=== PATIENT | female | born 1990 | race Caucasian/White ===

== ENCOUNTER 2016-11-07 23:32 | Emergency (ER) | payer MEDICAID ==
[2016-11-07 23:38] VITALS: BP 122/82
[2016-11-07] MEDS ORDERED: Diphtheria,Pertussis(Acell),Tetanus Vaccine 0.5 ML SDV IM ONE (23:59)
[2016-11-08] MEDS ORDERED: Amoxicillin/Clavulanate K 875-125 MG Tab PO ONE
[2016-11-08] MEDS ORDERED: Bacitracin Oint 1 GM U/D Packet TOP ONE
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
== END 2016-11-08 00:27 | disposition home or self-care (01) ==
LOC: DL.ED 23:32
DX: S01.81XA Laceration without foreign body of other part of head, initial encounter (principal); S60.412A Abrasion of right middle finger, initial encounter; F17.210 Nicotine dependence, cigarettes, uncomplicated; Y04.0XXA Assault by unarmed brawl or fight, initial encounter; Z91.030 Bee allergy status; Z91.040 Latex allergy status; Z79.899 Other long term (current) drug therapy
CPT/HCPCS: 12011; 90471; 90715; 99284; A9270

== ENCOUNTER 2016-11-08 17:41 | Emergency (ER) | payer MEDICAID ==
[2016-11-08 17:56] VITALS: BP 117/67
[2016-11-08] MEDS ORDERED: metroNIDAZOLE 250 MG Tab PO ONE (18:44)
[2016-11-08] MEDS ORDERED: cefTRIAXone 250 MG, Lidocaine 1% 0.9 ML IM ONE ×2 (18:45)
[2016-11-08] MEDS ORDERED: Ondansetron 4 MG Tab.DIS PO ONE (18:45)
[2016-11-08] MEDS ORDERED: Azithromycin 250 MG Tab PO ONE (18:45)
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
== END 2016-11-08 19:44 | disposition home or self-care (01) ==
LOC: DL.ED 17:41
DX: N76.0 Acute vaginitis (principal); B37.9 Candidiasis, unspecified; S06.0X0D Concussion without loss of consciousness, subsequent encounter; S60.414D Abrasion of right ring finger, subsequent encounter; S16.1XXD Strain of muscle, fascia and tendon at neck level, subsequent encounter; J45.909 Unspecified asthma, uncomplicated; K21.9 Gastro-esophageal reflux disease without esophagitis; F41.9 Anxiety disorder, unspecified; F17.210 Nicotine dependence, cigarettes, uncomplicated; D64.9 Anemia, unspecified; Z98.890 Other specified postprocedural states; Z91.040 Latex allergy status; Z91.030 Bee allergy status; Z91.018 Allergy to other foods; Y04.8XXD Assault by other bodily force, subsequent encounter
CPT/HCPCS: 36415; 70450; 72125; 80305; 81001; 81025; 85025; 87491; 87591; 96372; 99284; A9270; G0480; J0696

== ENCOUNTER 2017-03-27 20:59 | Emergency (ER) | payer MEDICAID ==
[2017-03-28 01:02] VITALS: BP 95/47
[2017-03-28] MEDS ORDERED: Ketorolac 30 MG/ML SDV IM ONE (01:28)
[2017-03-28] MEDS ORDERED: diphenhydrAMINE 25 MG Tab PO ONE (01:28)
[2017-03-28] MEDS ORDERED: Ondansetron 4 MG Tab.DIS PO ONE (01:28)
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
== END 2017-03-28 02:28 ==
LOC: DL.ED 20:59
DX: R51 Headache (principal); J45.909 Unspecified asthma, uncomplicated; K21.9 Gastro-esophageal reflux disease without esophagitis; F41.9 Anxiety disorder, unspecified; Z86.2 Personal history of diseases of the blood and blood-forming organs and certain disorders involving the immune mechanism; F17.210 Nicotine dependence, cigarettes, uncomplicated; Z91.040 Latex allergy status; Z91.030 Bee allergy status; Z91.018 Allergy to other foods
CPT/HCPCS: 96372; 99283; A9270; J1885

== ENCOUNTER 2017-05-21 14:47 | Emergency (ER) | payer MEDICAID ==
[2017-05-21] MEDS ORDERED: Sodium Chloride 0.9% 1,000 ML IV ONE (15:12)
--- NOTE | 2017-05-21 15:14 | EDM.PDOC ---
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 Pt. smoke 1/2 ppd and could be . PMHx. STDs Onset Date: 05/19/17 Onset Time: 12:00 Duration: Day(s): Location: Reports: Pelvis Severity: Moderate Improves with: Reports: None Worsens with: Reports: None Associated Symptoms: Reports: No Other Symptoms Pelvic Pain Score (Numeric/FACES): 2 - Related Data Allergies Allergy/AdvReac Type Severity Reaction Status Date / Time aloe vera Allergy Hives Verified 05/21/17 15:08 latex Allergy Hives Verified 05/21/17 15:08 strawberry [[place]] Allergy Swelling Verified 05/21/17 15:08 venom-honey bee Allergy Swelling Verified 05/21/17 15:08 [bee venom (honey bee)] Past Medical History - Past Health History Medical/Surgical History: Denies Medical/Surgical History HEENT History: Reports: None Cardiovascular History: Reports: None Respiratory History: Reports: Asthma Other Respiratory History: Haven't used inhaler in "a long time" Gastrointestinal History: Reports: GERD Genitourinary History: Reports: UTI, Recurrent Other Genitourinary History: Frequent UTIs, on Macribid until end of 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 and 5th metatarcel on left foot. Neurological History: Reports: None Psychiatric History: Reports: Anxiety Endocrine/Metabolic History: Reports: None Hematologic History: Reports: Anemia, B12 Deficiency Immunologic History: Reports: None Oncologic (Cancer) History: Reports: None Dermatologic History: Reports: None - Infectious Disease History Infectious Disease History: Reports: Chicken Pox, Herpes, Human Papilloma Virus (HPV) Other Infectious Disease History: GC, chlamydia - Past Surgical History Head Surgeries/Procedures: Reports: None Female Surgical History: Reports: Section, Other (See Below) Social & Family History - Family History Family Medical History: Noncontributory - Tobacco Use Smoking Status *Q: Current Every Day Smoker Years of Tobacco use: 5 Packs/Tins Daily: 0.4 Used Tobacco, but Quit: No Month Tobacco Last Used: 01 Second Hand Smoke Exposure: Yes - Caffeine Use Caffeine Use: Reports: None - Alcohol Use Days Per Week of Alcohol Use: 6 Number of Drinks Per Day: 2 Total Drinks Per Week: 12 - Recreational Drug Use Recreational Drug Use: No Drug Use in Last 12 Months: No Recreational Drug Type: Reports: Ecstasy Recreational Drug Use Frequency: Not Used In Over 1 Month - Sexual History Sexual History: Reports: Sexually Active - Living Situation & Occupation Living situation: Reports: with Significant Other Occupation: Employed ED ROS GENERAL - Review of Systems Review Of Systems: See Below Constitutional: Reports: No Symptoms HEENT: Reports: No Symptoms Respiratory: Reports: No Symptoms Cardiovascular: Reports: No Symptoms Endocrine: Reports: No Symptoms GI/Abdominal: Reports: No Symptoms : Reports: Discharge (brownish w/ odor) Musculoskeletal: Reports: No Symptoms Skin: Reports: No Symptoms Neurological: Reports: No Symptoms Psychiatric: Reports: No Symptoms Hematologic/Lymphatic: Reports: No Symptoms Immunologic: Reports: No Symptoms ED EXAM - Physical Exam Exam: See Below Exam Limited By: No Limitations General Appearance: Alert, No Apparent Distress, Thin Eye Exam: Bilateral Eye: EOMI, PERRL Ears: Normal External Exam Nose: Normal Inspection Throat/Mouth: Normal Inspection Head: Atraumatic Respiratory/Chest: No Respiratory Distress, Lungs Clear Cardiovascular: Normal Peripheral Pulses, Regular Rate, Rhythm GI/Abdominal Exam: Normal Bowel Sounds, Soft, Non-Tender Back Exam: Normal Inspection Extremities: Normal Inspection Neurological: Alert, Oriented Psychiatric: Normal Affect Skin Exam: Warm Lymphatic: No Adenopathy Course - Vital Signs Last Recorded V/S: Last Vital Signs Temp 37.2 C 05/21/17 15:22 Pulse 64 05/21/17 15:22 Resp 18 05/21/17 15:22 BP 118/80 05/21/17 15:22 Pulse Ox 99 05/21/17 15:22 - Orders/Labs/Meds Orders: Active Orders 24 hr Category Date Time Status CULTURE GENITAL [RM] Stat Lab 05/21/17 15:30 Received Labs: Laboratory Tests 05/21/17 05/21/17 05/21/17 Range/Units 15:16 15:16 15:31 WBC 5.2 (5.0-10.0) 10^3/uL RBC 4.43 (4.2-5.4) 10^6/uL Hgb 13.3 (12.0-16.0) g/dL Hct 37.9 (37.0-47.0) % MCV 85.6 D (80-100) fL MCH 30.0 (27.0-34.0) pg MCHC 35.1 H (33.0-35.0) g/dL Plt Count 144 L (150-450) 10^3/uL Neut % (Auto) 57.3 (42.2-75.2) % Lymph % (Auto) 30.6 (20.5-50.1) % [place] % (Auto) 8.8 H (2-8) % Eos % (Auto) 2.9 (1.0-3.0) % Baso % (Auto) 0.4 (0.0-1.0) % Sodium (135-145) mmol/L Potassium (3.6-5.0) mmol/L Chloride (101-111) mmol/L Carbon Dioxide (21.0-31.0) mmol/L Anion Gap BUN (7-18) mg/dL Creatinine (0.6-1.3) mg/dL Est Cr Clr Drug Dosing mL/min Estimated GFR (MDRD) BUN/Creatinine Ratio Glucose (74-105) mg/dL Calcium (8.4-10.2) mg/dl Total Bilirubin (0.2-1.0) mg/dL AST (10-42) IU/L ALT (10-60) IU/L Alkaline Phosphatase (42-121) IU/L Total Protein (6.7-8.2) g/dl Albumin (3.2-5.5) g/dl Globulin Albumin/Globulin Ratio Urine HCG, Qual Negative Urine Opiates Screen Negative (NEGATIVE) Ur Oxycodone Screen Negative (NEGATIVE) Urine Methadone Screen Negative (NEGATIVE) Ur Barbiturates Screen Negative (NEGATIVE) U Tricyclic Antidepress Negative (NEGATIVE) Ur Phencyclidine Scrn Negative (NEGATIVE) Ur Amphetamine Screen Negative (NEGATIVE) U Methamphetamines Scrn Negative (NEGATIVE) Urine MDMA Screen Negative (NEGATIVE) U Benzodiazepines Scrn Negative (NEGATIVE) Urine Cocaine Screen Negative (NEGATIVE) U Marijuana (THC) Screen Negative (NEGATIVE) 05/21/17 Range/Units 15:31 WBC (5.0-10.0) 10^3/uL RBC (4.2-5.4) 10^6/uL Hgb (12.0-16.0) g/dL Hct (37.0-47.0) % MCV (80-100) fL MCH (27.0-34.0) pg MCHC (33.0-35.0) g/dL Plt Count (150-450) 10^3/uL Neut % (Auto) (42.2-75.2) % Lymph % (Auto) (20.5-50.1) % [place] % (Auto) (2-8) % Eos % (Auto) (1.0-3.0) % Baso % (Auto) (0.0-1.0) % Sodium 141 (135-145) mmol/L Potassium 4.0 (3.6-5.0) mmol/L Chloride 105 (101-111) mmol/L Carbon Dioxide 27.0 (21.0-31.0) mmol/L Anion Gap 13.0 BUN 9 (7-18) mg/dL Creatinine 0.6 (0.6-1.3) mg/dL Est Cr Clr Drug Dosing 116.95 mL/min Estimated GFR (MDRD) > 60 BUN/Creatinine Ratio 15.00 Glucose 80 (74-105) mg/dL Calcium 9.0 (8.4-10.2) mg/dl Total Bilirubin 0.4 (0.2-1.0) mg/dL AST 19 (10-42) IU/L ALT 18 (10-60) IU/L Alkaline Phosphatase 52 (42-121) IU/L Total Protein 6.7 (6.7-8.2) g/dl Albumin 4.1 (3.2-5.5) g/dl Globulin 2.6 Albumin/Globulin Ratio 1.58 Urine HCG, Qual Urine Opiates Screen (NEGATIVE) Ur Oxycodone Screen (NEGATIVE) Urine Methadone Screen (NEGATIVE) Ur Barbiturates Screen (NEGATIVE) U Tricyclic Antidepress (NEGATIVE) Ur Phencyclidine Scrn (NEGATIVE) Ur Amphetamine Screen (NEGATIVE) U Methamphetamines Scrn (NEGATIVE) Urine MDMA Screen (NEGATIVE) U Benzodiazepines Scrn (NEGATIVE) Urine Cocaine Screen (NEGATIVE) U Marijuana (THC) Screen (NEGATIVE) Meds: Medications Discontinued Medications Generic Name Dose Route Start Last Admin Trade Name Goran PRN Reason Stop Dose Admin Sodium Chloride 1,000 mls @ 999 mls/hr 05/21/17 15:12 05/21/17 15:58 Normal Saline IV 05/21/17 16:12 999 mls/hr .BOLUS ONE Administration Departure - Departure Time of Disposition: 16:28 Disposition: Home, Self-Care 01 Condition: Good Clinical Impression: Bacterial vaginosis - Discharge Information Forms: ED Department Discharge Additional Instructions: Take Medication as directed and complete: FLAGYL 500mg BID # 14 No Sex until re-checked by your PCP in one week - My Orders Last 24 Hours: My Active Orders 05/21/17 15:30 CULTURE GENITAL [RM] Stat - Assessment/Plan Last 24 Hours: My Active Orders 05/21/17 15:30 CULTURE GENITAL [RM] Stat
[2017-05-21 15:23] VITALS: BP 118/80
[2017-05-21 15:59] LABS: CHLORIDE,CL 105 mmol/L (101-111); SODIUM,NA 141 mmol/L (135-145)
== END 2017-05-21 16:39 | disposition home or self-care (01) ==
LOC: DL.ED 14:47
DX: N76.0 Acute vaginitis (principal); B96.89 Other specified bacterial agents as the cause of diseases classified elsewhere; F17.210 Nicotine dependence, cigarettes, uncomplicated; Z86.2 Personal history of diseases of the blood and blood-forming organs and certain disorders involving the immune mechanism; Z91.040 Latex allergy status; Z91.018 Allergy to other foods; Z91.030 Bee allergy status; Z91.048 Other nonmedicinal substance allergy status
CPT/HCPCS: 36415; 80053; 80305; 81025; 85025; 87070; 87210; 96360; 99283; J7030

== ENCOUNTER 2017-08-09 12:02 | Emergency (ER) | payer MEDICAID ==
--- NOTE | 2017-08-09 12:30 | EDM.PDOC ---
ED HPI GENERAL MEDICAL PROBLEM - General Chief Complaint: Fever Stated Complaint: ? FLU Time Seen by Provider: 08/09/17 12:30 Source of Information: Reports: Patient, RN, RN Notes Reviewed History Limitations: Reports: No Limitations - History of Present Illness INITIAL COMMENTS - FREE TEXT/NARRATIVE: C/O 3 days duration of fever, gen. body aches, clear runny nose, and dry cough. Pt's children have same Sx's and tested positive for influenza. Denies breathing difficulties. 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 Generalized Pain Score (Numeric/FACES): 6 - Related Data Allergies Allergy/AdvReac Type Severity Reaction Status Date / Time aloe vera Allergy Hives Verified 05/21/17 15:08 latex Allergy Hives Verified 05/21/17 15:08 strawberry [[place]] Allergy Swelling Verified 05/21/17 15:08 venom-honey bee Allergy Swelling Verified 05/21/17 15:08 [bee venom (honey bee)] Home Meds: Home Meds Acetaminophen [Tylenol] 650 mg PO ASDIRECTED 08/09/17 [History] Past Medical History - Past Health History Medical/Surgical History: Denies Medical/Surgical History HEENT History: Reports: None Cardiovascular History: Reports: None Respiratory History: Reports: Asthma Other Respiratory History: Haven't used inhaler in "a long time" Gastrointestinal History: Reports: GERD Genitourinary History: Reports: UTI, Recurrent Other Genitourinary History: Frequent UTIs, on Macribid until end of 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 and 5th metatarcel on left foot. Neurological History: Reports: None Psychiatric History: Reports: Anxiety Endocrine/Metabolic History: Reports: None Hematologic History: Reports: Anemia, B12 Deficiency Immunologic History: Reports: None Oncologic (Cancer) History: Reports: None Dermatologic History: Reports: None - Infectious Disease History Infectious Disease History: Reports: Chicken Pox, Herpes, Human Papilloma Virus (HPV) Other Infectious Disease History: GC, chlamydia - Past Surgical History Head Surgeries/Procedures: Reports: None Female Surgical History: Reports: Section, Other (See Below) Social & Family History - Family History Family Medical History: Noncontributory - Tobacco Use Smoking Status *Q: Current Every Day Smoker Years of Tobacco use: 5 Packs/Tins Daily: 0.4 Used Tobacco, but Quit: No Month Tobacco Last Used: 01 Second Hand Smoke Exposure: Yes - Caffeine Use Caffeine Use: Reports: None - Alcohol Use Days Per Week of Alcohol Use: 6 Number of Drinks Per Day: 2 Total Drinks Per Week: 12 - Recreational Drug Use Recreational Drug Use: No Drug Use in Last 12 Months: No Recreational Drug Type: Reports: Ecstasy Recreational Drug Use Frequency: Not Used In Over 1 Month - Sexual History Sexual History: Reports: Sexually Active - Living Situation & Occupation Living situation: Reports: with Significant Other Occupation: Employed ED ROS GENERAL - Review of Systems Review Of Systems: ROS reveals no pertinent complaints other than HPI. ED EXAM, GENERAL - Physical Exam Exam: See Below Exam Limited By: No Limitations General Appearance: Alert, WD/WN, No Apparent Distress, Other (acutely ill but non-toxic appearing) Eye Exam: Bilateral Eye: Normal Inspection Ears: Normal External Exam, Normal Canal, Hearing Grossly Normal, Normal TMs Nose: No Blood, Nasal Drainage (clear) Throat/Mouth: Normal Inspection, Normal Lips, Normal Gums, Normal Oropharynx, Normal Voice, No Airway Compromise Head: Atraumatic, Normocephalic Neck: Normal Inspection, Supple, Non-Tender, Full Range of Motion Respiratory/Chest: No Respiratory Distress, Lungs Clear, Normal Breath Sounds, No Accessory Muscle Use, Chest Non-Tender, Other (dry cough) Cardiovascular: Normal Peripheral Pulses, Regular Rate, Rhythm, No Edema, No Gallop, No JVD, No Murmur, No Rub GI/Abdominal: Normal Bowel Sounds, Soft, Non-Tender, No Distention Back Exam: Normal Inspection Extremities: Normal Inspection Neurological: Alert, Oriented, CN II-XII Intact, Normal Cognition, Normal Gait, No Motor/Sensory Deficits Psychiatric: Normal Affect, Normal Mood Skin Exam: Warm, Dry, Intact, Normal Color, No Rash Course - Vital Signs Last Recorded V/S: Last Vital Signs Temp 37.7 C 08/09/17 13:10 Pulse 97 08/09/17 13:10 Resp 14 08/09/17 13:10 BP 118/72 08/09/17 13:10 Pulse Ox 100 08/09/17 13:10 - Orders/Labs/Meds Orders: Active Orders 24 hr Category Date Time Status CULTURE STREP A CONFIRMATION [RM] Stat Lab 08/09/17 12:25 Results STREP SCRN A RAPID W CULT CONF [RM] Stat Lab 08/09/17 12:25 Results Labs: Influenza A: Positive Influenza B, Rapid strep: negative Departure - Departure Time of Disposition: 13:38 Disposition: Home, Self-Care 01 Condition: Good Clinical Impression: Influenza - Discharge Information Instructions: Fever, Adult, [id number], Influenza, Adult, [id number] Forms: ED Department Discharge Additional Instructions: Use Acetaminophen (Tylenol) or Ibuprofen (Motrin/Advil) as needed for fevers. Follow directions on bottle for dosing and precautions. Supplement fluid intake with water, juice, or gatorade until fevers resolve to prevent dehydration. Follow up in clinic if not improving in 7 to 10 days. Return to ER if any breathing difficulties develop. - My Orders Last 24 Hours: My Active Orders 08/09/17 12:25 CULTURE STREP A CONFIRMATION [RM] Stat STREP SCRN A RAPID W CULT CONF [RM] Stat - Assessment/Plan Last 24 Hours: My Active Orders 08/09/17 12:25 CULTURE STREP A CONFIRMATION [RM] Stat STREP SCRN A RAPID W CULT CONF [RM] Stat
[2017-08-09 13:12] VITALS: BP 118/72
== END 2017-08-09 13:52 | disposition home or self-care (01) ==
LOC: DL.ED 12:02
DX: J10.1 Influenza due to other identified influenza virus with other respiratory manifestations (principal); F17.210 Nicotine dependence, cigarettes, uncomplicated; Z91.040 Latex allergy status; Z91.030 Bee allergy status; Z91.018 Allergy to other foods; Z91.09 Other allergy status, other than to drugs and biological substances
CPT/HCPCS: 87081; 87430; 87804; 99283

== ENCOUNTER 2017-09-17 11:08 | Emergency (ER) | payer MEDICAID ==
[2017-09-17 11:28] VITALS: BP 116/78
--- NOTE | 2017-09-17 11:55 | EDM.PDOC ---
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 She reports that she was able to get the tampon out today. Relates that she has been having fevers and chills off and on. Lower abd pain for the last two weeks. Describes as cramping pain.Relates nausea no emesis. Patient reports large amount of vaginal discharge after removal. States the discharge is white. Reports that she has had some vaginal itching. Denies dysuria or flank pain Onset: Other (Abd pain for last 2 weeks) Location: Reports: Abdomen Quality: Reports: Other (Cramping ) Severity: Moderate Improves with: Reports: Medication Worsens with: Reports: Movement Associated Symptoms: Reports: Fever/Chills, Nausea/Vomiting Back Pain Score (Numeric/FACES): 7 - Related Data Allergies Allergy/AdvReac Type Severity Reaction Status Date / Time aloe vera Allergy Hives Verified 05/21/17 15:08 latex Allergy Hives Verified 05/21/17 15:08 strawberry [[place]] Allergy Swelling Verified 05/21/17 15:08 venom-honey bee Allergy Swelling Verified 05/21/17 15:08 [bee venom (honey bee)] Home Meds: Home Meds Acetaminophen [Tylenol] 650 mg PO ASDIRECTED 08/09/17 [History] Past Medical History - Past Health History Medical/Surgical History: Denies Medical/Surgical History HEENT History: Reports: None Cardiovascular History: Reports: None Respiratory History: Reports: Asthma Other Respiratory History: Haven't used inhaler in "a long time" Gastrointestinal History: Reports: GERD Genitourinary History: Reports: UTI, Recurrent Other Genitourinary History: Frequent UTIs, on Macribid until end of 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 and 5th metatarcel on left foot. Neurological History: Reports: None Psychiatric History: Reports: Anxiety Endocrine/Metabolic History: Reports: None Hematologic History: Reports: Anemia, B12 Deficiency Immunologic History: Reports: None Oncologic (Cancer) History: Reports: None Dermatologic History: Reports: None - Infectious Disease History Infectious Disease History: Reports: Chicken Pox, Herpes, Human Papilloma Virus (HPV) Other Infectious Disease History: GC, chlamydia - Past Surgical History Head Surgeries/Procedures: Reports: None Female Surgical History: Reports: Section, Other (See Below) Social & Family History - Family History Family Medical History: Noncontributory - Tobacco Use Smoking Status *Q: Current Every Day Smoker Years of Tobacco use: 4 Packs/Tins Daily: 0.5 Used Tobacco, but Quit: No Month/Year Tobacco Last Used: Second Hand Smoke Exposure: Yes - Caffeine Use Caffeine Use: Reports: Energy Drinks, Soda - Alcohol Use Days Per Week of Alcohol Use: 2 Number of Drinks Per Day: 10 Total Drinks Per Week: 20 - Recreational Drug Use Recreational Drug Use: No Drug Use in Last 12 Months: No Recreational Drug Type: Reports: Ecstasy Recreational Drug Use Frequency: Not Used In Over 1 Month - Sexual History Sexual History: Reports: Sexually Active - Living Situation & Occupation Living situation: Reports: with Significant Other Occupation: Employed ED ROS GENERAL - Review of Systems Review Of Systems: ROS reveals no pertinent complaints other than HPI. ED EXAM, GI/ABD - Physical Exam Exam: See Below Exam Limited By: No Limitations General Appearance: Alert, WD/WN, No Apparent Distress Eyes: Bilateral: Normal Appearance, EOMI Ears: Normal External Exam, Normal Canal, Hearing Grossly Normal, Normal TMs Nose: Normal Inspection, Normal Mucosa, No Blood Throat/Mouth: Normal Inspection, Normal Lips, Normal Teeth, Normal Gums, Normal Oropharynx, Normal Voice, No Airway Compromise Head: Atraumatic, Normocephalic Neck: Normal Inspection, Supple, Non-Tender, Full Range of Motion Respiratory/Chest: No Respiratory Distress, Lungs Clear, Normal Breath Sounds, No Accessory Muscle Use, Chest Non-Tender Cardiovascular: Normal Peripheral Pulses, Regular Rate, Rhythm, No Edema, No Gallop, No JVD, No Murmur, No Rub GI/Abdominal Exam: Normal Bowel Sounds, Soft, No Organomegaly, No Distention, No Abnormal Bruit, No Mass, Tender (Patient reports pain to lower abd. Reports more so to the left lower abd) Rectal (Female) Exam: Normal Exam, Normal Rectal Tone Back Exam: Normal Inspection, Full Range of Motion, NT Extremities: Normal Inspection, Normal Range of Motion, Non-Tender, Normal Capillary Refill, No Pedal Edema Neurological: Alert, Oriented, CN II-XII Intact, Normal Cognition, Normal Gait, Normal Reflexes, No Motor/Sensory Deficits Psychiatric: Normal Affect, Normal Mood Skin Exam: Warm, Dry, Intact, Normal Color, No Rash Lymphatic: No Adenopathy Course - Vital Signs Last Recorded V/S: Last Vital Signs Temp 37.1 C 09/17/17 11:27 Pulse 62 09/17/17 11:27 Resp 16 09/17/17 11:27 BP 116/78 09/17/17 11:27 Pulse Ox 100 09/17/17 11:27 - Orders/Labs/Meds Orders: Active Orders 24 hr Category Date Time Status CHLAMYDIA AND GONORRHEA BY TMA Stat Lab 09/17/17 12:14 Received CULTURE URINE [RM] Stat Lab 09/17/17 13:14 Ordered Labs: Laboratory Tests 09/17/17 09/17/17 09/17/17 Range/Units 11:54 11:54 12:14 WBC 5.9 (5.0-10.0) 10^3/uL RBC 4.83 (4.2-5.4) 10^6/uL Hgb 14.3 (12.0-16.0) g/dL Hct 40.7 (37.0-47.0) % MCV 84.3 (80-100) fL MCH 29.6 (27.0-34.0) pg MCHC 35.1 H (33.0-35.0) g/dL Plt Count 161 (150-450) 10^3/uL Neut % (Auto) 65.8 (42.2-75.2) % Lymph % (Auto) 26.1 (20.5-50.1) % [place] % (Auto) 7.1 (2-8) % Eos % (Auto) 0.7 L (1.0-3.0) % Baso % (Auto) 0.3 (0.0-1.0) % Sodium 134 L (135-145) mmol/L Potassium 3.9 (3.6-5.0) mmol/L Chloride 101 (101-111) mmol/L Carbon Dioxide 27.0 (21.0-31.0) mmol/L Anion Gap 9.9 BUN 10 (7-18) mg/dL Creatinine 0.6 (0.6-1.3) mg/dL Est Cr Clr Drug Dosing 111.95 mL/min Estimated GFR (MDRD) > 60 BUN/Creatinine Ratio 16.66 Glucose 88 (74-105) mg/dL Calcium 8.8 (8.4-10.2) mg/dl Total Bilirubin 1.1 H (0.2-1.0) mg/dL AST 19 (10-42) IU/L ALT 16 (10-60) IU/L Alkaline Phosphatase 52 (42-121) IU/L Total Protein 6.8 (6.7-8.2) g/dl Albumin 4.0 (3.2-5.5) g/dl Globulin 2.8 Albumin/Globulin Ratio 1.43 Urine Color Yellow (YELLOW) Urine Appearance Cloudy (CLEAR) Urine pH 7.0 (5.0-9.0) Ur Specific [place] 1.020 (1.005-1.030) Urine Protein Negative (NEGATIVE) Urine Glucose (UA) Negative (NEGATIVE) Urine Ketones Negative (NEGATIVE) Urine Occult Blood Negative (NEGATIVE) Urine Nitrite Positive H (NEGATIVE) Urine Bilirubin Negative (NEGATIVE) Urine Urobilinogen 0.2 (0.2-1.0) mg/dL Ur Leukocyte Esterase Trace H (NEGATIVE) Urine RBC 0-5 /HPF Urine WBC 5-10 H (0-5/HPF) /HPF Ur Epithelial Cells Rare /HPF Urine Bacteria Many H (0-FEW/HPF) /HPF Urine Mucus Rare /LPF Urine HCG, Qual 09/17/17 Range/Units 12:15 WBC (5.0-10.0) 10^3/uL RBC (4.2-5.4) 10^6/uL Hgb (12.0-16.0) g/dL Hct (37.0-47.0) % MCV (80-100) fL MCH (27.0-34.0) pg MCHC (33.0-35.0) g/dL Plt Count (150-450) 10^3/uL Neut % (Auto) (42.2-75.2) % Lymph % (Auto) (20.5-50.1) % [place] % (Auto) (2-8) % Eos % (Auto) (1.0-3.0) % Baso % (Auto) (0.0-1.0) % Sodium (135-145) mmol/L Potassium (3.6-5.0) mmol/L Chloride (101-111) mmol/L Carbon Dioxide (21.0-31.0) mmol/L Anion Gap BUN (7-18) mg/dL Creatinine (0.6-1.3) mg/dL Est Cr Clr Drug Dosing mL/min Estimated GFR (MDRD) BUN/Creatinine Ratio Glucose (74-105) mg/dL Calcium (8.4-10.2) mg/dl Total Bilirubin (0.2-1.0) mg/dL AST (10-42) IU/L ALT (10-60) IU/L Alkaline Phosphatase (42-121) IU/L Total Protein (6.7-8.2) g/dl Albumin (3.2-5.5) g/dl Globulin Albumin/Globulin Ratio Urine Color (YELLOW) Urine Appearance (CLEAR) Urine pH (5.0-9.0) Ur Specific [place] (1.005-1.030) Urine Protein (NEGATIVE) Urine Glucose (UA) (NEGATIVE) Urine Ketones (NEGATIVE) Urine Occult Blood (NEGATIVE) Urine Nitrite (NEGATIVE) Urine Bilirubin (NEGATIVE) Urine Urobilinogen (0.2-1.0) mg/dL Ur Leukocyte Esterase (NEGATIVE) Urine RBC /HPF Urine WBC (0-5/HPF) /HPF Ur Epithelial Cells /HPF Urine Bacteria (0-FEW/HPF) /HPF Urine Mucus /LPF Urine HCG, Qual Negative Meds: Medications Discontinued Medications Generic Name Dose Route Start Last Admin Trade Name Freq PRN Reason Stop Dose Admin Azithromycin 1,000 mg 09/17/17 13:22 09/17/17 13:39 Zithromax PO 09/17/17 13:23 1,000 mg ONETIME ONE Administration Ceftriaxone Sodium 250 mg 09/17/17 13:22 09/17/17 13:40 Rocephin IM 09/17/17 13:23 250 mg ONETIME ONE Administration Departure - Departure Time of Disposition: 13:30 Disposition: Home, Self-Care 01 Condition: Good Clinical Impression: Pelvic pain, UTI, Urinary tract infectious disease Urinary tract infection Qualifiers: Urinary tract infection type: site unspecified Hematuria presence: without hematuria Qualified Code(s): N39.0 - Urinary tract infection, site not specified - Discharge Information Instructions: Urinary Tract Infection, Adult, Sgid-of-Tfhu Forms: ED Department Discharge Care Plan Goals: Reviewed labs and assessment findings with patient. Was given an injection of Rocephin 1G and azithromycin 1000mg PO prior to discharge. Prescription for Bactrim DS for the next three days. Drink plenty of fluids. Red flag signs discussed with patient including flank pain, vomiting, unable to keep medications down,or other concerning symptoms then she should follow-up in the clinic or return to the emergency room. Patient encouraged to follow-up with [facility]PL[employer] for further evaluation of her left sided abdominal pain. Patient verbalizes understanding. Denies any further questions or concerns at this time - My Orders Last 24 Hours: My Active Orders 09/17/17 12:14 CHLAMYDIA AND GONORRHEA BY TMA Stat 09/17/17 13:14 CULTURE URINE [RM] Stat - Assessment/Plan Last 24 Hours: My Active Orders 09/17/17 12:14 CHLAMYDIA AND GONORRHEA BY TMA Stat 09/17/17 13:14 CULTURE URINE [RM] Stat
[2017-09-17 12:21] LABS: CHLORIDE,CL 101 mmol/L (101-111); SODIUM,NA 134 mmol/L (135-145)
[2017-09-17] MEDS ORDERED: cefTRIAXone 250 MG Vial IM ONE (13:22)
[2017-09-17] MEDS ORDERED: Azithromycin 250 MG Tab PO ONE (13:22)
== END 2017-09-17 13:48 | disposition home or self-care (01) ==
LOC: DL.ED 11:08
DX: N39.0 Urinary tract infection, site not specified (principal); F17.210 Nicotine dependence, cigarettes, uncomplicated; Z91.040 Latex allergy status; Z91.018 Allergy to other foods; Z91.030 Bee allergy status
CPT/HCPCS: 36415; 80053; 81001; 81025; 85025; 87086; 87088; 87186; 87210; 87491; 87591; 96372; 99283; A9270-GY; J0696

== ENCOUNTER 2017-11-21 09:23 | Emergency (ER) | payer MEDICAID ==
[2017-11-21 09:36] VITALS: BP 104/58
--- NOTE | 2017-11-21 09:48 | EDM.PDOC ---
ED HPI GENERAL MEDICAL PROBLEM - General Chief Complaint: Respiratory Problem Stated Complaint: [id number] LARINGITIS Time Seen by Provider: 11/21/17 09:35 Source of Information: Reports: Patient History Limitations: Reports: No Limitations - History of Present Illness INITIAL COMMENTS - FREE TEXT/NARRATIVE: This 26 yo female patient reports to the ED due to a 1 day history of a sore throat, head congestion and coughing up greenish phlegm. The patient has not taken anything for temporary symptom relief and has not been seen in the Clinic. The patient does not know if she could be at this time. Onset Date: 11/20/17 Duration: Constant, Getting Worse Location: Reports: Head, Neck Quality: Reports: Ache, Dull, Throbbing Severity: Moderate Improves with: Reports: None Worsens with: Reports: Medication Associated Symptoms: Reports: cough w sputum, Headaches Treatments MACHINE SPRAYER: Denies: Acetaminophen, NSAIDS Throat Pain Score (Numeric/FACES): 8 - Related Data Allergies Allergy/AdvReac Type Severity Reaction Status Date / Time aloe vera Allergy Hives Verified 11/21/17 09:36 latex Allergy Hives Verified 11/21/17 09:36 strawberry [[place]] Allergy Swelling Verified 11/21/17 09:36 venom-honey bee Allergy Swelling Verified 11/21/17 09:36 [bee venom (honey bee)] Home Meds: Home Meds . 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 and 5th metatarcel on left foot. Neurological History: Reports: None Psychiatric History: Reports: Anxiety Endocrine/Metabolic History: Reports: None Hematologic History: Reports: Anemia, B12 Deficiency Immunologic History: Reports: None Oncologic (Cancer) History: Reports: None Dermatologic History: Reports: None - Infectious Disease History Infectious Disease History: Reports: Chicken Pox, Herpes, Human Papilloma Virus (HPV) Other Infectious Disease History: GC, chlamydia - Past Surgical History Head Surgeries/Procedures: Reports: None Female Surgical History: Reports: Section, Other (See Below) Social & Family History - Family History Family Medical History: Noncontributory - Tobacco Use Smoking Status *Q: Current Every Day Smoker Years of Tobacco use: 5 Packs/Tins Daily: 0.5 Second Hand Smoke Exposure: No - Caffeine Use Caffeine Use: Reports: Energy Drinks, Soda - Recreational Drug Use Recreational Drug Use: No - Sexual History Sexual History: Reports: Sexually Active - Living Situation & Occupation Living situation: Reports: with Significant Other Occupation: Employed ED ROS GENERAL - Review of Systems Review Of Systems: ROS reveals no pertinent complaints other than HPI. ED EXAM, GENERAL - Physical Exam Exam: See Below Exam Limited By: No Limitations General Appearance: Alert, WD/WN, Moderate Distress Eye Exam: Bilateral Eye: EOMI, Normal Inspection, PERRL Ears: Normal External Exam, Normal Canal, Hearing Grossly Normal, Normal TMs Nose: Normal Inspection, Normal Mucosa, No Blood Throat/Mouth: Normal Inspection, Normal Lips, Normal Teeth, Normal Gums, Normal Oropharynx, Normal Voice, No Airway Compromise Head: Facial Tenderness Neck: Normal Inspection, Supple, Full Range of Motion, Lymphadenopathy (L) Respiratory/Chest: No Respiratory Distress, Lungs Clear, Normal Breath Sounds, No Accessory Muscle Use, Chest Non-Tender Cardiovascular: Normal Peripheral Pulses, Regular Rate, Rhythm, No Edema, No Gallop, No JVD, No Murmur, No Rub GI/Abdominal: Normal Bowel Sounds, Soft, Non-Tender, No Organomegaly, No Distention, No Abnormal Bruit, No Mass (Female) Exam: Deferred Rectal (Female) Exam: Deferred Back Exam: Normal Inspection, Full Range of Motion, NT Extremities: Normal Inspection, Normal Range of Motion, Non-Tender, Normal Capillary Refill, No Pedal Edema Neurological: Alert, Oriented, CN II-XII Intact, Normal Cognition, Normal Gait, Normal Reflexes, No Motor/Sensory Deficits Psychiatric: Normal Affect, Normal Mood Skin Exam: Warm, Dry, Intact, Normal Color, No Rash Lymphatic: No Adenopathy Course - Vital Signs Last Recorded V/S: Last Vital Signs Temp 36.4 C 11/21/17 09:29 Pulse 66 11/21/17 09:29 Resp 16 11/21/17 09:29 BP 104/58 L 11/21/17 09:29 Pulse Ox 100 11/21/17 09:29 - Orders/Labs/Meds Orders: Active Orders 24 hr Category Date Time Status COMPREHENSIVE METABOLIC PN,CMP [CHEM] Urgent Lab 11/21/17 09:38 Ordered CULTURE STREP A CONFIRMATION [] Stat Lab 11/21/17 09:43 Results STREP SCRN A RAPID W CULT CONF [RM] Stat Lab 11/21/17 09:43 Received Labs: Laboratory Tests 11/21/17 11/21/17 11/21/17 Range/Units 09:48 09:48 09:48 WBC 10.0 (5.0-10.0) 10^3/uL RBC 4.51 (4.2-5.4) 10^6/uL Hgb 13.7 (12.0-16.0) g/dL Hct 37.9 (37.0-47.0) % MCV 84.0 (80-100) fL MCH 30.4 (27.0-34.0) pg MCHC 36.1 H (33.0-35.0) g/dL Plt Count 148 L (150-450) 10^3/uL Neut % (Auto) 76.3 H (42.2-75.2) % Lymph % (Auto) 13.4 L (20.5-50.1) % [place] % (Auto) 6.8 (2-8) % Eos % (Auto) 3.3 H (1.0-3.0) % Baso % (Auto) 0.2 (0.0-1.0) % Urine Color Yellow (YELLOW) Urine Appearance Cloudy (CLEAR) Urine pH 7.0 (5.0-9.0) Ur Specific [place] 1.025 (1.005-1.030) Urine Protein Negative (NEGATIVE) Urine Glucose (UA) Negative (NEGATIVE) Urine Ketones Negative (NEGATIVE) Urine Occult Blood Negative (NEGATIVE) Urine Nitrite Positive H (NEGATIVE) Urine Bilirubin Negative (NEGATIVE) Urine Urobilinogen 1.0 (0.2-1.0) mg/dL Ur Leukocyte Esterase Small H (NEGATIVE) Urine RBC 0-5 /HPF Urine WBC 10-20 H (0-5/HPF) /HPF Ur Epithelial Cells Moderate H /HPF Urine Bacteria Many H (0-FEW/HPF) /HPF Urinalysis Comment Urine HCG, Qual Negative Departure - Departure Time of Disposition: 10:10 Disposition: Home, Self-Care 01 Condition: Fair Clinical Impression: UTI, Urinary tract infectious disease Sinusitis Qualifiers: Sinusitis location: frontal Chronicity: acute Recurrence: non-recurrent Qualified Code(s): J01.10 - Acute frontal sinusitis, unspecified - Discharge Information Instructions: Sinusitis, Adult, [id number], Urinary Tract Infection, Adult, [id number] Forms: ED Department Discharge Care Plan Goals: The patient was advised of the examination and lab results during the visit. The patient was discharged with a script for Keflex (500 mg) to take 1 by mouth 3 times per day for 10 days. If the patient has any additional symptoms or concerns, the patient should follow-up with her primary care facility or return to the ED. - My Orders Last 24 Hours: My Active Orders 11/21/17 09:38 COMPREHENSIVE METABOLIC PN,CMP [CHEM] Urgent 11/21/17 09:43 CULTURE STREP A CONFIRMATION [RM] Stat STREP SCRN A RAPID W CULT CONF [RM] Stat - Assessment/Plan Last 24 Hours: My Active Orders 11/21/17 09:38 COMPREHENSIVE METABOLIC PN,CMP [CHEM] Urgent 11/21/17 09:43 CULTURE STREP A CONFIRMATION [RM] Stat STREP SCRN A RAPID W CULT CONF [RM] Stat
[2017-11-21 10:13] LABS: CHLORIDE,CL 100 mmol/L (101-111); SODIUM,NA 135 mmol/L (135-145)
== END 2017-11-21 10:16 | disposition home or self-care (01) ==
LOC: DL.ED 09:23
DX: J01.10 Acute frontal sinusitis, unspecified (principal); N39.0 Urinary tract infection, site not specified; F17.210 Nicotine dependence, cigarettes, uncomplicated; Z91.018 Allergy to other foods; Z91.040 Latex allergy status; Z91.030 Bee allergy status
CPT/HCPCS: 36415; 80053; 81001; 81025; 85025; 87081; 87430; 99283

== ENCOUNTER 2018-01-18 09:44 | Emergency (ER) | payer MEDICAID ==
[2018-01-18 09:56] VITALS: BP 116/72
[2018-01-18] MEDS ORDERED: Lidocaine 2% Viscous Solution 15 ML Cup PO ONE (10:06)
[2018-01-18] MEDS ORDERED: Sodium Chloride 0.9% 1,000 ML IV ONE (10:06)
[2018-01-18 10:44] LABS: ANION GAP 11.8; CHLORIDE,CL 100 mmol/L (101-111); SODIUM,NA 135 mmol/L (135-145)
--- NOTE | 2018-01-18 10:49 | EDM.PDOC ---
Scribed by Ruby Caballero 01/18/18 1048 for Cullen Kimball PA ED HPI GENERAL MEDICAL PROBLEM - General Chief Complaint: General Stated Complaint: TOOTH PAIN Time Seen by Provider: 01/18/18 10:09 Source of Information: Reports: Patient, RN, RN Notes Reviewed History Limitations: Reports: No Limitations - History of Present Illness INITIAL COMMENTS - FREE TEXT/NARRATIVE: Patient presents with pain to the right upper posterior dental pain for 3 days. She also has abdominal pain that started yesterday. ?. She has a whitish creamy discharge. Patient has been taking Tylenol and Naproxen. Onset Date: 01/15/18 Duration: Getting Worse Location: Reports: Abdomen, Other (teeth) Quality: Reports: Ache Severity: Severe Improves with: Reports: None Worsens with: Reports: None Associated Symptoms: Reports: No Other Symptoms Treatments COLORING CHECKER: Reports: Other (see below) (Tylenol and Naproxen) Tooth/Teeth Pain Score (Numeric/FACES): 8 - Related Data Allergies Allergy/AdvReac Type Severity Reaction Status Date / Time aloe vera Allergy Hives Verified 01/18/18 09:56 latex Allergy Hives Verified 01/18/18 09:56 strawberry [[place]] Allergy Swelling Verified 01/18/18 09:56 venom-honey bee Allergy Swelling Verified 01/18/18 09:56 [bee venom (honey bee)] Home Meds: Home Meds . 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 and 5th metatarcel on left foot. Neurological History: Reports: None Psychiatric History: Reports: Anxiety Endocrine/Metabolic History: Reports: None Hematologic History: Reports: Anemia, B12 Deficiency Immunologic History: Reports: None Oncologic (Cancer) History: Reports: None Dermatologic History: Reports: None - Infectious Disease History Infectious Disease History: Reports: Chicken Pox, Herpes, Human Papilloma Virus (HPV) Other Infectious Disease History: GC, chlamydia - Past Surgical History Head Surgeries/Procedures: Reports: None Female Surgical History: Reports: Section, Other (See Below) Social & Family History - Family History Family Medical History: Noncontributory - Tobacco Use Smoking Status *Q: Current Every Day Smoker Years of Tobacco use: 6 Packs/Tins Daily: 0.5 - Caffeine Use Caffeine Use: Reports: Soda - Recreational Drug Use Recreational Drug Use: No - Sexual History Sexual History: Reports: Sexually Active - Living Situation & Occupation Living situation: Reports: with Significant Other Occupation: Employed ED ROS GENERAL - Review of Systems Review Of Systems: ROS reveals no pertinent complaints other than HPI. ED EXAM, GENERAL - Physical Exam Exam: See Below Exam Limited By: No Limitations General Appearance: Alert, WD/WN, No Apparent Distress Eye Exam: Bilateral Eye: Normal Inspection Ears: Normal External Exam, Normal Canal, Hearing Grossly Normal, Normal TMs Nose: Normal Inspection, Normal Mucosa, No Blood Throat/Mouth: Other (pain right upper posterior emphysematous gums. ) Head: Other (Pain to right side of face and ear) Neck: Normal Inspection, Supple, Non-Tender, Full Range of Motion Respiratory/Chest: No Respiratory Distress, Lungs Clear, Normal Breath Sounds, No Accessory Muscle Use, Chest Non-Tender Cardiovascular: Normal Peripheral Pulses, Regular Rate, Rhythm, No Edema, No Gallop, No JVD, No Murmur, No Rub GI/Abdominal: Other (diffuse lower abdominal pain) (Female) Exam: Deferred Rectal (Female) Exam: Deferred Back Exam: Normal Inspection, Full Range of Motion, NT Extremities: Normal Inspection, Normal Range of Motion, Non-Tender, Normal Capillary Refill, No Pedal Edema Neurological: Alert, Oriented, CN II-XII Intact, Normal Cognition, Normal Gait, Normal Reflexes, No Motor/Sensory Deficits Psychiatric: Normal Affect, Normal Mood Skin Exam: Warm, Dry, Intact, Normal Color, No Rash Lymphatic: No Adenopathy Course - Vital Signs Last Recorded V/S: Last Vital Signs Temp 37.0 C 01/18/18 09:52 Pulse 87 01/18/18 09:52 Resp 16 01/18/18 09:52 BP 116/72 01/18/18 09:52 Pulse Ox 99 01/18/18 09:52 - Orders/Labs/Meds Orders: Active Orders 24 hr Category Date Time Status HCG QUALITATIVE,URINE [URCHEM] Stat Lab 01/18/18 10:05 Ordered UA W/MICROSCOPIC [URIN] Stat Lab 01/18/18 10:05 Ordered Sodium Chloride 0.9% [Normal Saline] 1,000 ml Med 01/18/18 10:06 Ordered IV .BOLUS Medication Orders Sodium Chloride (Normal Saline) 1,000 mls @ 999 mls/hr IV .BOLUS ONE Stop: 01/18/18 11:06 Last Admin: 01/18/18 10:19 Dose: 999 mls/hr Labs: Laboratory Tests 01/18/18 01/18/18 01/18/18 Range/Units 10:15 10:15 10:24 WBC 5.3 (5.0-10.0) 10^3/uL RBC 4.67 (4.2-5.4) 10^6/uL Hgb 14.0 (12.0-16.0) g/dL Hct 40.2 (37.0-47.0) % MCV 86.1 (80-100) fL MCH 30.0 (27.0-34.0) pg MCHC 34.8 (33.0-35.0) g/dL Plt Count 128 L (150-450) 10^3/uL Neut % (Auto) 72.4 (42.2-75.2) % Lymph % (Auto) 15.4 L (20.5-50.1) % [place] % (Auto) 11.8 H (2-8) % Eos % (Auto) 0.0 L (1.0-3.0) % Baso % (Auto) 0.4 (0.0-1.0) % Sodium 135 (135-145) mmol/L Potassium 3.8 (3.6-5.0) mmol/L Chloride 100 L (101-111) mmol/L Carbon Dioxide 27.0 (21.0-31.0) mmol/L Anion Gap 11.8 BUN 11 (7-18) mg/dL Creatinine 0.7 (0.6-1.3) mg/dL Est Cr Clr Drug Dosing 99.35 mL/min Estimated GFR (MDRD) > 60 BUN/Creatinine Ratio 15.71 Glucose 85 (74-105) mg/dL Calcium 9.2 (8.4-10.2) mg/dl Total Bilirubin 1.4 H (0.2-1.0) mg/dL AST 51 H (10-42) IU/L ALT 109 H (10-60) IU/L Alkaline Phosphatase 79 (42-121) IU/L Total Protein 7.4 (6.7-8.2) g/dl Albumin 4.6 (3.2-5.5) g/dl Globulin 2.8 Albumin/Globulin Ratio 1.64 Urine Color Yellow (YELLOW) Urine Appearance Slightly cloudy (CLEAR) Urine pH 7.5 (5.0-9.0) Ur Specific [place] 1.015 (1.005-1.030) Urine Protein 100 H (NEGATIVE) Urine Glucose (UA) Negative (NEGATIVE) Urine Ketones Negative (NEGATIVE) Urine Occult Blood Trace-intact H (NEGATIVE) Urine Nitrite Positive H (NEGATIVE) Urine Bilirubin Negative (NEGATIVE) Urine Urobilinogen 4.0 H (0.2-1.0) mg/dL Ur Leukocyte Esterase Small H (NEGATIVE) Urine RBC 0-5 /HPF Urine WBC 10-20 H (0-5/HPF) /HPF Ur Epithelial Cells Many H /HPF Urine Bacteria Many H (0-FEW/HPF) /HPF Urine HCG, Qual //18 Range/Units 10:24 WBC (5.0-10.0) 10^3/uL RBC (4.2-5.4) 10^6/uL Hgb (12.0-16.0) g/dL Hct (37.0-47.0) % MCV (80-100) fL MCH (27.0-34.0) pg MCHC (33.0-35.0) g/dL Plt Count (150-450) 10^3/uL Neut % (Auto) (42.2-75.2) % Lymph % (Auto) (20.5-50.1) % [place] % (Auto) (2-8) % Eos % (Auto) (1.0-3.0) % Baso % (Auto) (0.0-1.0) % Sodium (135-145) mmol/L Potassium (3.6-5.0) mmol/L Chloride (101-111) mmol/L Carbon Dioxide (21.0-31.0) mmol/L Anion Gap BUN (7-18) mg/dL Creatinine (0.6-1.3) mg/dL Est Cr Clr Drug Dosing mL/min Estimated GFR (MDRD) BUN/Creatinine Ratio Glucose (74-105) mg/dL Calcium (8.4-10.2) mg/dl Total Bilirubin (0.2-1.0) mg/dL AST (10-42) IU/L ALT (10-60) IU/L Alkaline Phosphatase (42-121) IU/L Total Protein (6.7-8.2) g/dl Albumin (3.2-5.5) g/dl Globulin Albumin/Globulin Ratio Urine Color (YELLOW) Urine Appearance (CLEAR) Urine pH (5.0-9.0) Ur Specific [place] (1.005-1.030) Urine Protein (NEGATIVE) Urine Glucose (UA) (NEGATIVE) Urine Ketones (NEGATIVE) Urine Occult Blood (NEGATIVE) Urine Nitrite (NEGATIVE) Urine Bilirubin (NEGATIVE) Urine Urobilinogen (0.2-1.0) mg/dL Ur Leukocyte Esterase (NEGATIVE) Urine RBC /HPF Urine WBC (0-5/HPF) /HPF Ur Epithelial Cells /HPF Urine Bacteria (0-FEW/HPF) /HPF Urine HCG, Qual Negative Meds: Medications Generic Name Dose Route Start Last Admin Trade Name Freq PRN Reason Stop Dose Admin Sodium Chloride 1,000 mls @ 999 mls/hr 01/18/18 10:06 01/18/18 10:19 Normal Saline IV 01/18/18 11:06 999 mls/hr .BOLUS ONE Administration Discontinued Medications Generic Name Dose Route Start Last Admin Trade Name Freq PRN Reason Stop Dose Admin Lidocaine HCl 15 ml 01/18/18 10:06 01/18/18 10:11 Xylocaine 2% Viscous PO 01/18/18 10:07 15 ml ONETIME ONE Administration Departure - Departure Time of Disposition: 10:44 Disposition: Home, Self-Care 01 Condition: Fair Clinical Impression: Dental abscess UTI (urinary tract infection) Qualifiers: Urinary tract infection type: site unspecified Hematuria presence: with hematuria Qualified Code(s): N39.0 - Urinary tract infection, site not specified ; R31.9 - Hematuria, unspecified - Discharge Information *PRESCRIPTION DRUG MONITORING PROGRAM REVIEWED*: Not Applicable *COPY OF PRESCRIPTION DRUG MONITORING REPORT IN PATIENT JOSEPH: Not Applicable Instructions: Urinary Tract Infection, Adult, Dental Abscess Forms: ED Department Discharge Care Plan Goals: The patient was advised of the examination and lab results during the visit. The patient was given topical Viscous Lidocaine for dental pain and a liter of IV fluids while in the ED. The patient was discharged with a script for Augmentin (500/125) #20 to take 1 by mouth 2 times per day for 10 days. The patient should increase her oral fluid intake. If the patient has any additional symptoms or concerns, the patient should follow-up with her dentist and primary care provider. - My Orders Last 24 Hours: My Active Orders 01/18/18 10:05 HCG QUALITATIVE,URINE [URCHEM] Stat UA W/MICROSCOPIC [URIN] Stat 01/18/18 10:06 Sodium Chloride 0.9% [Normal Saline] 1,000 ml IV .BOLUS - Assessment/Plan Last 24 Hours: My Active Orders 01/18/18 10:05 HCG QUALITATIVE,URINE [URCHEM] Stat UA W/MICROSCOPIC [URIN] Stat 01/18/18 10:06 Sodium Chloride 0.9% [Normal Saline] 1,000 ml IV .BOLUS I have read and agree with the documentation that has been completed regarding this visit. By signing this record, I attest that the documentation was completed in my physical presence and is an accurate record of the encounter.
== END 2018-01-18 11:27 | disposition home or self-care (01) ==
LOC: DL.ED 09:44
DX: K04.7 Periapical abscess without sinus (principal); N39.0 Urinary tract infection, site not specified; F17.210 Nicotine dependence, cigarettes, uncomplicated; Z91.040 Latex allergy status; Z91.018 Allergy to other foods; Z91.030 Bee allergy status
CPT/HCPCS: 36415; 80053; 81001; 81025; 85025; 87086; 87088; 87186; 96360; 99283; A9270; J7030

== ENCOUNTER 2018-01-26 19:45 | Emergency (ER) | payer MEDICAID ==
[2018-01-26 20:16] VITALS: BP 136/72
--- NOTE | 2018-01-26 20:21 | EDM.PDOC ---
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 [id number] Time Seen by Provider: 01/26/18 20:19 Source of Information: Reports: Patient History Limitations: Reports: No Limitations - History of Present Illness INITIAL COMMENTS - FREE TEXT/NARRATIVE: worried could be . no bleeding. - Related Data Allergies Allergy/AdvReac Type Severity Reaction Status Date / Time aloe vera Allergy Hives Verified 01/18/18 09:56 latex Allergy Hives Verified 01/18/18 09:56 strawberry [[place]] Allergy Swelling Verified 01/18/18 09:56 venom-honey bee Allergy Swelling Verified 01/18/18 09:56 [bee venom (honey bee)] Home Meds: Home Meds . 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 and 5th metatarcel on left foot. Neurological History: Reports: None Psychiatric History: Reports: Anxiety Endocrine/Metabolic History: Reports: None Hematologic History: Reports: Anemia, B12 Deficiency Immunologic History: Reports: None Oncologic (Cancer) History: Reports: None Dermatologic History: Reports: None - Infectious Disease History Infectious Disease History: Reports: Chicken Pox, Herpes, Human Papilloma Virus (HPV) Other Infectious Disease History: GC, chlamydia - Past Surgical History Head Surgeries/Procedures: Reports: None Female Surgical History: Reports: Section, Other (See Below) Social & Family History - Family History Family Medical History: Noncontributory - Caffeine Use Caffeine Use: Reports: Soda - Sexual History Sexual History: Reports: Sexually Active - Living Situation & Occupation Living situation: Reports: with Significant Other Occupation: Employed ED ROS GENERAL - Review of Systems Review Of Systems: ROS reveals no pertinent complaints other than HPI. ED EXAM - Physical Exam Exam: See Below Exam Limited By: No Limitations General Appearance: Alert, WD/WN, Anxious Ears: Hearing Grossly Normal Throat/Mouth: Normal Voice, No Airway Compromise Head: Atraumatic Neck: Non-Tender, Full Range of Motion Respiratory/Chest: No Respiratory Distress Cardiovascular: Regular Rate, Rhythm GI/Abdominal Exam: Soft, Non-Tender Psychiatric: Anxious Skin Exam: Warm, Dry, Normal Color Lymphatic: No Adenopathy Course - Vital Signs Last Recorded V/S: Last Vital Signs Temp 36.9 C 01/26/18 20:13 Pulse 70 01/26/18 20:13 Resp 18 01/26/18 20:13 BP 136/72 01/26/18 20:13 Pulse Ox 100 01/26/18 20:13 - Orders/Labs/Meds Orders: Active Orders 24 hr Category Date Time Status UA W/MICROSCOPIC [URIN] Stat Lab 01/26/18 20:12 Ordered Labs: Laboratory Tests 01/26/18 01/26/18 Range/Units 19:51 19:51 Urine RBC 0-5 /HPF Urine WBC 20-30 H (0-5/HPF) /HPF Ur Epithelial Cells Many H /HPF Urine Bacteria Many H (0-FEW/HPF) /HPF Urinalysis Comment Urine HCG, Qual Positive Departure - Departure Time of Disposition: 20:20 Disposition: Home, Self-Care 01 Condition: Good Clinical Impression: Qualifiers: Weeks of gestation: less than 8 weeks Qualified Code(s): Z3A.01 - Less than 8 weeks gestation of - Discharge Information Additional Instructions: 1) follow up with OB tomorrow 2) recheck as needed - My Orders Last 24 Hours: My Active Orders 01/26/18 20:12 UA W/MICROSCOPIC [URIN] Stat - Assessment/Plan Last 24 Hours: My Active Orders 01/26/18 20:12 UA W/MICROSCOPIC [URIN] Stat
== END 2018-01-26 20:28 | disposition home or self-care (01) ==
LOC: DL.ED 19:45
DX: Z32.01 Encounter for pregnancy test, result positive (principal); Z91.018 Allergy to other foods; Z91.040 Latex allergy status; Z91.030 Bee allergy status; Z3A.01 Less than 8 weeks gestation of pregnancy
CPT/HCPCS: 81001; 81025; 99282

== ENCOUNTER 2018-03-04 13:07 | Emergency (ER) | payer MEDICAID | END 2018-03-04 14:39 | disposition left against medical advice (07) | LOC: DL.ED 13:07 | DX: Z53.21 Procedure and treatment not carried out due to patient leaving prior to being seen by health care provider (principal) ==

== ENCOUNTER 2018-03-05 08:33 | Emergency (ER) | payer MEDICAID ==
[2018-03-05] MEDS: Acetaminophen Soln 160 MG/5 ML UD Cup PO ONE (08:53)
--- NOTE | 2018-03-05 09:02 | EDM.PDOC ---
ED HPI GENERAL MEDICAL PROBLEM - General Stated Complaint: WHITE STUFF ON TONSILLES Time Seen by Provider: 03/05/18 08:45 Source of Information: Reports: Patient History Limitations: Reports: No Limitations - History of Present Illness INITIAL COMMENTS - FREE TEXT/NARRATIVE: C/O sore throat and painful swallowing, started yesterday, felling itchy, was seen in clinic yesterday for headache and received IV fluids for H/A complaint. No known fevers, chills this am. No ear pain, no vomiting. 9 weeks pg. - Related Data Allergies Allergy/AdvReac Type Severity Reaction Status Date / Time aloe vera Allergy Hives Verified 03/05/18 08:59 latex Allergy Hives Verified 03/05/18 08:59 strawberry [[place]] Allergy Swelling Verified 03/05/18 08:59 venom-honey bee Allergy Swelling Verified 03/05/18 08:59 [bee venom (honey bee)] Home Meds: Home Meds . [No Known Home Meds] 11/21/17 [History] Past Medical History - Past Health History Medical/Surgical History: Denies Medical/Surgical History HEENT History: Reports: None Cardiovascular History: Reports: None Respiratory History: Reports: Asthma Other Respiratory History: Haven't used inhaler in "a long time" Gastrointestinal History: Reports: GERD Genitourinary History: Reports: UTI, Recurrent Other Genitourinary History: Frequent UTIs, on Macribid until end of TAKE OFF MAN History: Reports: , Spontaneous Other TAKE OFF MAN History: MORGAN 10/02/15 Musculoskeletal History: Reports: Fracture Other Musculoskeletal History: fx c-spine 5th. and 5th metatarcel on left foot. Neurological History: Reports: None Psychiatric History: Reports: Anxiety Endocrine/Metabolic History: Reports: None Hematologic History: Reports: Anemia, B12 Deficiency Immunologic History: Reports: None Oncologic (Cancer) History: Reports: None Dermatologic History: Reports: None - Infectious Disease History Infectious Disease History: Reports: Chicken Pox, Herpes, Human Papilloma Virus (HPV) Other Infectious Disease History: GC, chlamydia - Past Surgical History Head Surgeries/Procedures: Reports: None Female Surgical History: Reports: Section, Other (See Below) Social & Family History - Family History Family Medical History: Noncontributory - Caffeine Use Caffeine Use: Reports: Soda - Sexual History Sexual History: Reports: Sexually Active - Living Situation & Occupation Living situation: Reports: with Significant Other Occupation: Employed ED ROS ENT - Review of Systems Review Of Systems: ROS reveals no pertinent complaints other than HPI. ED EXAM, ENT - Physical Exam Exam: See Below Exam Limited By: No Limitations General Appearance: Alert, Mild Distress Eye Exam: Bilateral Eye: EOMI Ears: Normal External Exam, Hearing Grossly Normal, Normal TMs Nose: Normal Inspection, Normal Mucousa Mouth/Throat: Tonsillar Erythema, Tonsillar Exudates, Tonsillar Swelling. No: Uvular Deviation Head: Atraumatic, Normocephalic Neck: Normal Inspection, Full Range of Motion, Lymphadenopathy (L), Lymphadenopathy (R) Respiratory/Chest: No Respiratory Distress, Lungs Clear, Normal Breath Sounds Cardiovascular: Normal Peripheral Pulses, Regular Rate, Rhythm GI/Abdominal: Normal Bowel Sounds (Female) Exam: Normal External Exam Back: Full Range of Motion Extremities: Normal Range of Motion Psychiatric: Normal Affect, Normal Mood Skin: Warm, Dry, Intact, Normal Color Course - Orders/Labs/Meds Orders: Active Orders 24 hr Category Date Time Status STREP SCRN A RAPID W CULT CONF [RM] Stat Lab 03/05/18 08:41 Received Meds: Medications Discontinued Medications Generic Name Dose Route Start Last Admin Trade Name Freq PRN Reason Stop Dose Admin Acetaminophen 640 mg 03/05/18 08:46 03/05/18 08:53 Tylenol Solution PO 03/05/18 08:47 640 mg ONETIME ONE Administration Departure - Departure Time of Disposition: 09:04 Disposition: Home, Self-Care 01 Condition: Good Clinical Impression: Pharyngitis Qualifiers: Pharyngitis/tonsillitis etiology: streptococcus Qualified Code(s): J02.0 - Streptococcal pharyngitis - Discharge Information *PRESCRIPTION DRUG MONITORING PROGRAM REVIEWED*: Not Applicable Instructions: Strep Throat Additional Instructions: increase fluid intake salt water gargles tylenol 650mg every 4 hours as needed for fever/discomfort clinic follow up as needed amoxicillin 500mg one 3 times daily as needed - My Orders Last 24 Hours: My Active Orders 03/05/18 08:41 STREP SCRN A RAPID W CULT CONF [RM] Stat - Assessment/Plan Last 24 Hours: My Active Orders 03/05/18 08:41 STREP SCRN A RAPID W CULT CONF [RM] Stat
[2018-03-05 09:14] VITALS: BP 99/36
[2018-03-05] MEDS: cefTRIAXone 1 GM, Lidocaine 1% 2.1 ML IM ONE ×2 (09:17)
== END 2018-03-05 09:49 | disposition home or self-care (01) ==
LOC: DL.ED 08:33
DX: O99.511 Diseases of the respiratory system complicating pregnancy, first trimester (principal); J02.0 Streptococcal pharyngitis; Z91.040 Latex allergy status; Z91.030 Bee allergy status; Z91.018 Allergy to other foods; Z3A.09 9 weeks gestation of pregnancy
CPT/HCPCS: 87430; 96372; 99283; A9270; J0696

== ENCOUNTER 2018-04-08 12:26 | Emergency (ER) | payer MEDICAID ==
[2018-04-08] MEDS ORDERED: diphenhydrAMINE 25 MG Tab ONE (12:32)
--- NOTE | 2018-04-08 12:35 | EDM.PDOC ---
ED HPI GENERAL MEDICAL PROBLEM - General Chief Complaint: Allergic Reaction Stated Complaint: BEE STING / PG Time Seen by Provider: 04/08/18 12:35 Source of Information: Reports: Patient, Old Records, RN, RN Notes Reviewed History Limitations: Reports: No Limitations - History of Present Illness INITIAL COMMENTS - FREE TEXT/NARRATIVE: Pt presents to ER from home by POV with c/o bee sting to left ankle about 45 to 60 minutes ago. Pt states she is "highly allergic" to bee stings, so she gave herself one injection of a Epi-Pen. She did not have any benadryl at home. She denies rash, hives, wheezing, or difficulty breathing. Pt states she is about 3 or 3.5 months . She a G8, P7, sAb1, L6. She states she had a normal Ob US a couple of weeks ago. Onset: Today, Sudden Duration: Constant Location: Reports: Lower Extremity, Left Quality: Reports: Burning Severity: Moderate Improves with: Reports: None Worsens with: Reports: Medication (Epi-Pen) Associated Symptoms: Reports: No Other Symptoms Bilateral Ankle Pain Score (Numeric/FACES): 6 - Related Data Allergies Allergy/AdvReac Type Severity Reaction Status Date / Time aloe vera Allergy Hives Verified 04/08/18 12:38 latex Allergy Hives Verified 04/08/18 12:38 strawberry [[place]] Allergy Swelling Verified 04/08/18 12:38 venom-honey bee Allergy Swelling Verified 04/08/18 12:38 [bee venom (honey bee)] Home Meds: Home Meds . 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 and 5th metatarcel on left foot. Neurological History: Reports: None Psychiatric History: Reports: Anxiety Endocrine/Metabolic History: Reports: None Hematologic History: Reports: Anemia, B12 Deficiency Immunologic History: Reports: None Oncologic (Cancer) History: Reports: None Dermatologic History: Reports: None - Infectious Disease History Infectious Disease History: Reports: Chicken Pox, Herpes, Human Papilloma Virus (HPV) Other Infectious Disease History: GC, chlamydia - Past Surgical History Head Surgeries/Procedures: Reports: None Female Surgical History: Reports: Section, Other (See Below) Social & Family History - Family History Family Medical History: Noncontributory - Tobacco Use Smoking Status *Q: Former Smoker - Caffeine Use Caffeine Use: Reports: Soda - Sexual History Sexual History: Reports: Sexually Active - Living Situation & Occupation Living situation: Reports: with Significant Other Occupation: Employed ED ROS ALLERGIC REACTION - Review of Systems Review Of Systems: ROS reveals no pertinent complaints other than HPI. ED EXAM GENERAL NO PERIP PULSE - Physical Exam Exam: See Below Exam Limited By: No Limitations General Appearance: Alert, WD/WN, No Apparent Distress, Anxious Eye Exam: Bilateral Eye: Normal Inspection Ears: Hearing Grossly Normal Nose: Normal Inspection, Normal Mucosa, No Blood Throat/Mouth: Normal Inspection, Normal Lips, Normal Teeth, Normal Gums, Normal Oropharynx, Normal Voice, No Airway Compromise Head: Atraumatic, Normocephalic Neck: Normal Inspection, Supple, Non-Tender, Full Range of Motion Respiratory/Chest: No Respiratory Distress, Lungs Clear, Normal Breath Sounds, No Accessory Muscle Use, Chest Non-Tender Cardiovascular: Normal Peripheral Pulses, Regular Rate, Rhythm, No Edema, No Gallop, No JVD, No Murmur, No Rub GI/Abdominal: Normal Bowel Sounds, Soft, Non-Tender, No Distention, No Abnormal Bruit, Other ( Heart Tones: 148 by doppler) (Female) Exam: Deferred Rectal (Female) Exam: Deferred Back Exam: Normal Inspection Extremities: Normal Range of Motion, No Pedal Edema, Normal Capillary Refill, Other (bee sting to left ankle with mild localized reaction of redness). No: Pedal Edema, Joint Swelling, Increased Warmth Neurological: Alert, Oriented, CN II-XII Intact, Normal Cognition, Normal Gait, No Motor/Sensory Deficits Psychiatric: Anxious Skin Exam: Warm, Dry, Intact, Other (No urticaria) Course - Vital Signs Last Recorded V/S: Last Vital Signs Temp 37.2 C 04/08/18 12:35 Pulse 98 04/08/18 12:35 Resp 16 04/08/18 12:35 BP 127/87 04/08/18 12:35 Pulse Ox 100 04/08/18 12:35 - Orders/Labs/Meds Orders: Active Orders 24 hr Category Date Time Status Heart Tones [RC] ASDIRECTED Care 04/08/18 12:38 Active Meds: Medications Discontinued Medications Generic Name Dose Route Start Last Admin Trade Name Groan PRN Reason Stop Dose Admin Diphenhydramine HCl Confirm 04/08/18 12:32 04/08/18 12:38 Benadryl Administered 04/08/18 12:33 25 mg Dose Administration 25 mg .ROUTE .STK-MED ONE Diphenhydramine HCl 25 mg 04/08/18 12:45 04/08/18 12:45 Benadryl PO 04/08/18 12:46 Not Given ONETIME ONE - Re-Assessments/Exams Free Text/Narrative Re-Assessment/Exam: 04/08/18 12:59 No signs of systemic allergic reaction. Pt will be d/c'd home. Epi-Pen Rx given to replace her used Epi-Pen. Departure - Departure Time of Disposition: 13:10 Disposition: Home, Self-Care 01 Condition: Good Clinical Impression: Local reaction to bee sting Qualifiers: Encounter type: initial encounter Injury intent: accidental or unintentional Qualified Code(s): T63.441A - Toxic effect of venom of bees, accidental ( unintentional), initial encounter - Discharge Information *PRESCRIPTION DRUG MONITORING PROGRAM REVIEWED*: Not Applicable *COPY OF PRESCRIPTION DRUG MONITORING REPORT IN PATIENT JOSEPH: Not Applicable Instructions: Bee, Wasp, or Hornet Sting, Adult Forms: ED Department Discharge Additional Instructions: Rx: Epi-Pen Take over the counter Benadryl 25mg: One tablet by mouth every 6 hours until bee sting reaction resolves. Return to ER if you develop any hives, or difficulty breathing. - My Orders Last 24 Hours: My Active Orders 04/08/18 12:38 Heart Tones [RC] ASDIRECTED - Assessment/Plan Last 24 Hours: My Active Orders 04/08/18 12:38 Heart Tones [RC] ASDIRECTED
[2018-04-08 12:36] VITALS: BP 127/87
[2018-04-08] MEDS ORDERED: diphenhydrAMINE 25 MG Tab PO ONE (12:45)
== END 2018-04-08 12:55 | disposition home or self-care (01) ==
LOC: DL.ED 12:26
DX: O9A.219 Injury, poisoning and certain other consequences of external causes complicating pregnancy, unspecified trimester (principal); T63.441A Toxic effect of venom of bees, accidental (unintentional), initial encounter; Z91.040 Latex allergy status; Z91.030 Bee allergy status; Z87.891 Personal history of nicotine dependence
CPT/HCPCS: 99282; A9270

== ENCOUNTER 2019-08-08 14:50 | Emergency (ER) | payer MEDICAID ==
[2019-08-08 15:10] VITALS: BP 121/67; PULSE 90
[2019-08-08 15:41] LABS: ANION GAP 10.9; CHLORIDE,CL 101 mmol/L (101-111); SODIUM,NA 136 mmol/L (135-145)
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
== END 2019-08-08 16:26 | disposition home or self-care (01) ==
LOC: DL.ED 14:50
DX: O23.41 Unspecified infection of urinary tract in pregnancy, first trimester (principal); O99.511 Diseases of the respiratory system complicating pregnancy, first trimester; J45.909 Unspecified asthma, uncomplicated; O99.611 Diseases of the digestive system complicating pregnancy, first trimester; K21.9 Gastro-esophageal reflux disease without esophagitis; Z91.030 Bee allergy status; Z91.018 Allergy to other foods; Z91.09 Other allergy status, other than to drugs and biological substances; Z79.899 Other long term (current) drug therapy; Z3A.08 8 weeks gestation of pregnancy
CPT/HCPCS: 36415; 80053; 80305-QW; 81001; 84702; 85025; 87086; 87088; 87186; 87491; 87591; 99283

== ENCOUNTER 2019-10-03 12:15 | Emergency (ER) | payer MEDICAID ==
[2019-10-03 13:13] VITALS: BP 101/59; PULSE 93
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
== END 2019-10-03 14:54 | disposition home or self-care (01) ==
LOC: DL.ED 12:15
DX: J10.1 Influenza due to other identified influenza virus with other respiratory manifestations (principal); Z91.040 Latex allergy status; Z91.030 Bee allergy status; Z91.018 Allergy to other foods; Z91.09 Other allergy status, other than to drugs and biological substances
CPT/HCPCS: 87081; 87430; 87804; 99283

== ENCOUNTER 2019-12-14 11:37 | Emergency (ER) | payer MEDICAID ==
[2019-12-14 12:09] VITALS: BP 125/48; PULSE 86
[2019-12-14] MEDS ORDERED: Cephalexin 500 MG Cap PO ONE (12:09)
[2019-12-14] MEDS ORDERED: Bacitracin Oint 1 GM U/D Packet TOP ONE (12:10)
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
== END 2019-12-14 12:28 | disposition home or self-care (01) ==
LOC: DL.ED 11:37
DX: S91.331A Puncture wound without foreign body, right foot, initial encounter (principal); J45.909 Unspecified asthma, uncomplicated; F17.210 Nicotine dependence, cigarettes, uncomplicated; Z91.09 Other allergy status, other than to drugs and biological substances; Z91.040 Latex allergy status; Z91.018 Allergy to other foods; Z91.030 Bee allergy status; W45.0XXA Nail entering through skin, initial encounter
CPT/HCPCS: 99283; A9270

== ENCOUNTER 2020-04-03 18:20 | Emergency (ER) | payer MEDICAID ==
[2020-04-03 18:30] VITALS: BP 131/62; PULSE 71
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
[2020-04-03] MEDS ORDERED: Sodium Chloride 0.9% 10 ML Syringe FLUSH PRN (18:35)
[2020-04-03] MEDS ORDERED: diphenhydrAMINE 50 MG/ML SDV IVPUSH ONE (18:35)
[2020-04-03] MEDS ORDERED: Ketorolac 30 MG/ML SDV IVPUSH ONE (19:11)
== END 2020-04-03 19:25 | disposition home or self-care (01) ==
LOC: DL.ED 18:20
DX: T63.441A Toxic effect of venom of bees, accidental (unintentional), initial encounter (principal); J45.909 Unspecified asthma, uncomplicated; Z91.040 Latex allergy status; Z91.030 Bee allergy status; Z91.018 Allergy to other foods; Z91.048 Other nonmedicinal substance allergy status
CPT/HCPCS: 96374; 96375; 99283; J1200; J1885

== ENCOUNTER 2020-05-14 09:13 | Emergency (ER) | payer MEDICAID ==
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
[2020-05-14 10:06] VITALS: BP 127/97; PULSE 81
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
[2020-05-14] MEDS ORDERED: Ibuprofen 800 MG Tab PO ONE (11:01)
== END 2020-05-14 11:11 | disposition home or self-care (01) ==
LOC: DL.ED 09:13
DX: S60.211A Contusion of right wrist, initial encounter (principal); S10.93XA Contusion of unspecified part of neck, initial encounter; J45.909 Unspecified asthma, uncomplicated; Z91.09 Other allergy status, other than to drugs and biological substances; Z91.040 Latex allergy status; Z91.018 Allergy to other foods; Z91.030 Bee allergy status; Z91.048 Other nonmedicinal substance allergy status; Y04.0XXA Assault by unarmed brawl or fight, initial encounter
CPT/HCPCS: 72040; 73110; 99284; A9270

== ENCOUNTER 2020-05-22 11:22 | Emergency (ER) | payer MEDICAID ==
[2020-05-22 11:44] VITALS: BP 96/73; PULSE 74
[2020-05-22] MEDS ORDERED: Sodium Chloride 0.9% 1,000 ML IV ONE (12:53)
[2020-05-22] MEDS ORDERED: Sodium Chloride 0.9% 10 ML Syringe FLUSH PRN (12:53)
[2020-05-22] MEDS ORDERED: cefTRIAXone 1 GM in Sodium Chloride 0.9% 50 ML IV ONE (13:22)
[2020-05-22 13:40] LABS: ANION GAP 10.7 mEq/L (7-13); CHLORIDE,CL 104 mmol/L (98-107); SODIUM,NA 140 mmol/L (136-145)
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
== END 2020-05-22 13:53 | disposition home or self-care (01) ==
LOC: DL.ED 11:22
DX: N39.0 Urinary tract infection, site not specified (principal); E86.0 Dehydration; J45.909 Unspecified asthma, uncomplicated; Z91.048 Other nonmedicinal substance allergy status; Z91.040 Latex allergy status; Z91.018 Allergy to other foods; Z91.030 Bee allergy status; Z88.8 Allergy status to other drugs, medicaments and biological substances
CPT/HCPCS: 36415; 80053; 81001; 81025; 85025; 87086; 87088; 87186; 96374; 99283; J0696; J7030; J7050

== ENCOUNTER 2020-08-07 17:03 | Emergency (ER) | payer MEDICAID ==
[2020-08-07 17:14] VITALS: BP 115/74; PULSE 90
[2020-08-07] MEDS ORDERED: Amoxicillin/Clavulanate K 875-125 MG Tab PO ONE (17:45)
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
== END 2020-08-07 17:52 | disposition home or self-care (01) ==
LOC: DL.ED 17:03
DX: S91.051A Open bite, right ankle, initial encounter (principal); L08.9 Local infection of the skin and subcutaneous tissue, unspecified; J45.909 Unspecified asthma, uncomplicated; Z72.0 Tobacco use; Z91.040 Latex allergy status; Z91.018 Allergy to other foods; Z91.030 Bee allergy status; Z88.8 Allergy status to other drugs, medicaments and biological substances; Z91.09 Other allergy status, other than to drugs and biological substances; Y04.1XXA Assault by human bite, initial encounter
CPT/HCPCS: 99283; A9270

== ENCOUNTER 2020-10-29 11:22 | Emergency (ER) | payer MEDICAID ==
[2020-10-29 11:47] VITALS: BP 126/81; PULSE 108
[2020-10-29] MEDS ORDERED: Ondansetron 4 MG/2 ML SDV IV ONE (12:13)
[2020-10-29] MEDS ORDERED: Lactated Ringers 1,000 ML IV ONE (12:13)
[2020-10-29 12:22] LABS: ANION GAP 15.5 mEq/L (7-13); CHLORIDE,CL 102 mmol/L (98-107); SODIUM,NA 141 mmol/L (136-145)
[2020-10-29] MEDS ORDERED: cefTRIAXone 1 GM in Sodium Chloride 0.9% 50 ML IV ONE (12:37)
[2020-10-29] MEDS ORDERED: Acetaminophen 325 MG Tab PO ONE (12:54)
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
== END 2020-10-29 13:13 | disposition home or self-care (01) ==
LOC: DL.ED 11:22
DX: N30.00 Acute cystitis without hematuria (principal); J45.909 Unspecified asthma, uncomplicated; Z91.040 Latex allergy status; Z72.0 Tobacco use; Z91.030 Bee allergy status; Z91.018 Allergy to other foods; Z91.09 Other allergy status, other than to drugs and biological substances; Z88.8 Allergy status to other drugs, medicaments and biological substances
CPT/HCPCS: 36415; 80053; 80305; 81001; 81025; 85025; 87086; 87088; 87186; 96374; 96375; 99283; 99284; A9270; J0696; J2405; J7120

== ENCOUNTER 2021-01-24 11:08 | Emergency (ER) | payer MEDICAID ==
[2021-01-24 11:42] VITALS: BP 108/56; PULSE 66
== END 2021-01-24 11:56 | disposition left against medical advice (07) ==
LOC: DL.ED 11:08
DX: Z53.21 Procedure and treatment not carried out due to patient leaving prior to being seen by health care provider (principal)

== ENCOUNTER 2021-03-14 10:36 | Emergency (ER) | payer MEDICAID ==
[2021-03-14 11:04] VITALS: BP 130/46
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
[2021-03-14 13:07] VITALS: PULSE 76
== END 2021-03-14 13:09 | disposition home or self-care (01) ==
LOC: DL.ED 10:36
DX: J06.9 Acute upper respiratory infection, unspecified (principal); J45.909 Unspecified asthma, uncomplicated; Z72.0 Tobacco use; Z91.030 Bee allergy status; Z91.048 Other nonmedicinal substance allergy status; Z91.018 Allergy to other foods; Z91.09 Other allergy status, other than to drugs and biological substances; Z20.822 Contact with and (suspected) exposure to COVID-19
CPT/HCPCS: 99283; U0002

== ENCOUNTER 2021-03-31 15:07 | Emergency (ER) | payer MEDICAID ==
[2021-03-31] MEDS ORDERED: Ondansetron 4 MG/2 ML SDV IV ONE (15:35)
[2021-03-31] MEDS ORDERED: Sodium Chloride 0.9% 1,000 ML IV ONE (15:35)
[2021-03-31 16:08] LABS: CHLORIDE,CL 103 mmol/L (98-107); SODIUM,NA 140 mmol/L (136-145)
[2021-03-31] MEDS ORDERED: Pantoprazole 40 MG Vial IVPUSH ONE (16:47)
[2021-03-31] MEDS ORDERED: Iopamidol 612 MG/ML 100 ML Bottle IVPUSH ONE (17:13)
--- NOTE | 2021-03-31 18:06 | CT ---
PROCEDURE INFORMATION: Exam: CT Abdomen And Pelvis With Contrast Exam date and time: 03/31/2021 5:26 PM Age: 30 years old Clinical indication: Vomiting and other: Rlq pain, normal wbc; Additional info: Abdominal pain TECHNIQUE: Imaging protocol: Computed tomography of the abdomen and pelvis with contrast. Radiation optimization: All CT scans at this facility use at least one of these dose optimization techniques: automated exposure control; mA and/or kV adjustment per patient size (includes targeted exams where dose is matched to clinical indication); or iterative reconstruction. Contrast material: [id number]; Contrast volume: 75 ml; Contrast route: INTRAVENOUS (IV); COMPARISON: CT Abdomen Pelvis w Cont 04/08/2020 9:15 AM FINDINGS: Lungs: The visualized lung bases are clear. Liver: There is mild enlargement of the liver. The liver is otherwise normal. Gallbladder and bile ducts: The gallbladder is normal. There is no evidence of biliary ductal dilation. Pancreas: The pancreas is normal. Spleen: Spleen is prominent measuring 13.5 cm.No focal splenic lesion is seen. Adrenal glands: The adrenal glands are normal. Kidneys and ureters: The kidneys are normal. No hydronephrosis. No visible calculi. Stomach and bowel: There is mild colonic wall thickening with mild surrounding pericolonic inflammatory change. The abnormality involves essentially the entire colon from the cecum to the rectum however thickening in the right colon is the most obvious. Potential differential diagnoses for colitis includes infectious processes, as well as inflammatory noninfectious processes. Ischemic etiologies are considered unlikely considering patient's age. Non-specific/nonobstructive intestinal gas pattern. Appendix: A normal appendix is identified. Intraperitoneal space: No free intraperitoneal air. No free intraperitoneal fluid. Vasculature: The vasculature is normal. There is no aortic aneurysm. Lymph nodes: There is no adenopathy. No pelvic adenopathy. Urinary bladder: Bladder is normal. Reproductive: The uterus is normal. No adnexal mass. Bones/joints: No acute bony findings are identified. Soft tissues: There is no soft tissue abnormality seen. There is no soft tissue abnormality seen. IMPRESSION: 1. Mild diffuse colitis suspect.Potential differential diagnoses for colitis includes infectious processes, as well as inflammatory noninfectious processes. Ischemic etiologies are considered unlikely considering patient's age. 2. A normal appendix is identified.
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
[2021-03-31 18:27] LABS: AMPHETAMINES,URINE NEGATIVE (NEGATIVE); BARBITURATES,URINE NEGATIVE (NEGATIVE); BENZODIAZEPINE,URINE NEGATIVE (NEGATIVE); MDMA (ECSTASY), URINE NEGATIVE (NEGATIVE); METHADONE,URINE NEGATIVE (NEGATIVE); METHAMPHETAMINES,URINE NEGATIVE (NEGATIVE); OPIATES,URINE NEGATIVE (NEGATIVE); OXYCODONE,URINE NEGATIVE (NEGATIVE); PHENCYCLIDINE,URINE NEGATIVE (NEGATIVE); TCA,URINE NEGATIVE (NEGATIVE)
[2021-03-31] MEDS ORDERED: Ciprofloxacin in D5W 400 MG in Premix Bag 1 BAG IV ONE ×2 (18:30)
[2021-03-31] MEDS ORDERED: methylPREDNISolone Sodium Succinate 125 MG/2 ML SDV IVPUSH ONE (18:31)
[2021-03-31] MEDS ORDERED: metroNIDAZOLE/Normal Saline 500 MG in Premix Bag 100 BAG IV ONE (18:35)
[2021-03-31 19:59] VITALS: BP 104/59; PULSE 76
== END 2021-03-31 20:07 | disposition home or self-care (01) ==
LOC: DL.ED 15:07
DX: N30.00 Acute cystitis without hematuria (principal); K52.9 Noninfective gastroenteritis and colitis, unspecified; F10.10 Alcohol abuse, uncomplicated; J45.909 Unspecified asthma, uncomplicated; Z72.0 Tobacco use; Z91.048 Other nonmedicinal substance allergy status; Z91.040 Latex allergy status; Z91.018 Allergy to other foods; Z91.030 Bee allergy status; Z88.8 Allergy status to other drugs, medicaments and biological substances; Y90.0 Blood alcohol level of less than 20 mg/100 ml
CPT/HCPCS: 36415; 74177; 80053; 80305; 80307; 81001; 82150; 83690; 83735; 84703; 85025; 85610; 86140; 87086; 87088; 87186; 96365; 96368; 96375; 99284; C9113; J0744; J2405; J2930; J3490; J7030; Q9967

== ENCOUNTER 2021-07-06 15:02 | Emergency (ER) | payer MEDICAID ==
[2021-07-06 16:01] VITALS: BP 117/54; PULSE 72
[2021-07-06 16:01] LABS: CORONAVIRUS COVID-19 NAA POSITIVE (NEGATIVE)
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
== END 2021-07-06 16:42 | disposition home or self-care (01) ==
LOC: DL.ED 15:02
DX: U07.1 COVID-19 (principal); K04.7 Periapical abscess without sinus; Z91.040 Latex allergy status; Z91.018 Allergy to other foods; Z91.048 Other nonmedicinal substance allergy status; Z91.030 Bee allergy status; Z91.09 Other allergy status, other than to drugs and biological substances; Z72.0 Tobacco use; Z20.822 Contact with and (suspected) exposure to COVID-19
CPT/HCPCS: 0240U; 99283

== ENCOUNTER 2021-08-31 10:48 | Emergency (ER) | payer MEDICAID ==
[2021-08-31] MEDS ORDERED: Acetaminophen 500 MG Tab PO ONE (11:16)
[2021-08-31 11:26] VITALS: BP 117/84; PULSE 106
== END 2021-08-31 12:42 | disposition home or self-care (01) ==
LOC: DL.ED 10:48
DX: S00.83XA Contusion of other part of head, initial encounter (principal); Z91.040 Latex allergy status; Z91.030 Bee allergy status; Z91.018 Allergy to other foods; Z91.048 Other nonmedicinal substance allergy status; Y04.0XXA Assault by unarmed brawl or fight, initial encounter
CPT/HCPCS: 70450; 70486; 72125; 99283; A9270; 99281

== ENCOUNTER 2022-03-14 05:03 | Emergency (ER) | payer MEDICAID ==
[2022-03-14 05:17] VITALS: BP 103/68; PULSE 73
[2022-03-14 05:44] LABS: ANION GAP 11.7 mEq/L (7-13); CHLORIDE,CL 101 mmol/L (98-107); SODIUM,NA 136 mmol/L (136-145)
[2022-03-14 05:45] LABS: ACETAMINOPHEN 0 ug/mL (10-30 (Therapeutic)); ESTIMATED GFR 90 mL/min (>=60)
[2022-03-14 05:56] LABS: AMPHETAMINES,URINE NEGATIVE (NEGATIVE); BARBITURATES,URINE NEGATIVE (NEGATIVE); BENZODIAZEPINE,URINE NEGATIVE (NEGATIVE); MDMA (ECSTASY), URINE NEGATIVE (NEGATIVE); METHADONE,URINE NEGATIVE (NEGATIVE); METHAMPHETAMINES,URINE NEGATIVE (NEGATIVE); OPIATES,URINE NEGATIVE (NEGATIVE); OXYCODONE,URINE NEGATIVE (NEGATIVE); PHENCYCLIDINE,URINE NEGATIVE (NEGATIVE); TCA,URINE NEGATIVE (NEGATIVE)
[2022-03-14] MEDS ORDERED: cefTRIAXone 2 GM in Sodium Chloride 0.9% 100 ML IV ONE (05:58)
[2022-03-14] MEDS ORDERED: Sodium Chloride 0.9% 1,000 ML IV ONE (05:58)
[2022-03-14] MEDS ORDERED: Phenazopyridine 95 MG Tab PO ONE (05:59)
== END 2022-03-14 07:39 | disposition home or self-care (01) ==
LOC: DL.ED 05:03
DX: N39.0 Urinary tract infection, site not specified (principal); Z91.048 Other nonmedicinal substance allergy status; Z91.040 Latex allergy status; Z91.030 Bee allergy status; Z91.018 Allergy to other foods; Z88.8 Allergy status to other drugs, medicaments and biological substances; Z86.16 Personal history of COVID-19
CPT/HCPCS: 36415; 80053; 80143; 80179; 80305-QW; 80307; 81001; 82150; 83690; 83735; 84702; 84703; 85025; 87086; 87088; 87186; 96365; 99283; 99284-25; A9270-GY; J0696; J7030

== ENCOUNTER 2022-08-31 09:10 | Emergency (ER) | payer MEDICAID ==
[2022-08-31] MEDS ORDERED: Ondansetron 4 MG Tab.DIS PO ONE (09:33)
[2022-08-31 09:38] VITALS: BP 143/84; PULSE 82
[2022-08-31 10:06] LABS: ANION GAP 15.1 mEq/L (7-13)
[2022-08-31 10:18] LABS: CORONAVIRUS COVID-19 NAA NEGATIVE (NEGATIVE); RESPIRATORY SYNCYTIAL VIR NAA NEGATIVE (NEGATIVE)
[2022-09-05 13:42] LABS: C.TRACHOMATIS BY TMA Negative (Negative); N.GONORRHOEAE BY TMA Negative (Negative)
== END 2022-08-31 10:53 | disposition home or self-care (01) ==
LOC: DL.ED 09:10
DX: K52.9 Noninfective gastroenteritis and colitis, unspecified (principal); N30.00 Acute cystitis without hematuria; F17.210 Nicotine dependence, cigarettes, uncomplicated; Z91.048 Other nonmedicinal substance allergy status; Z91.040 Latex allergy status; Z91.018 Allergy to other foods; Z91.030 Bee allergy status; Z86.16 Personal history of COVID-19; Z20.822 Contact with and (suspected) exposure to COVID-19
CPT/HCPCS: 0241U; 80053; 81001; 85025; 87086; 87088; 87186; 87491; 87563; 87591; 99284; A9270

== ENCOUNTER 2022-11-04 10:21 | Emergency (ER) | payer MEDICAID ==
[2022-11-04] MEDS ORDERED: Clindamycin HCl 150 MG Cap PO ONE ×2 (10:22→11:06)
[2022-11-04] MEDS ORDERED: Ketorolac 10 MG Tab PO ONE (10:22)
[2022-11-04 10:30] VITALS: BP 131/92; PULSE 96
[2022-11-04] MEDS ORDERED: Ketorolac 30 MG/ML SDV IM ONE (11:06)
[2022-11-04] MEDS ORDERED: Ketorolac 10 MG Tab ONE ×2 (11:50→11:52)
[2022-11-04] MEDS ORDERED: Clindamycin HCl 150 MG Cap ONE (11:53)
[2022-11-07 12:47] LABS: C.TRACHOMATIS BY TMA Negative (Negative); N.GONORRHOEAE BY TMA Negative (Negative)
== END 2022-11-04 11:58 | disposition home or self-care (01) ==
LOC: DL.ED 10:21
DX: T81.40XA Infection following a procedure, unspecified, initial encounter (principal); K04.7 Periapical abscess without sinus; J45.909 Unspecified asthma, uncomplicated; Z86.16 Personal history of COVID-19; Z91.048 Other nonmedicinal substance allergy status; Z91.040 Latex allergy status; Z91.030 Bee allergy status; Z72.0 Tobacco use
CPT/HCPCS: 87491; 87563; 87591; 96372; 99282; 99283; A9270; J1885

== ENCOUNTER 2023-01-06 07:32 | Emergency (ER) | payer MEDICAID | END 2023-01-06 08:10 | disposition left against medical advice (07) | LOC: DL.ED 07:32 | DX: Z53.21 Procedure and treatment not carried out due to patient leaving prior to being seen by health care provider (principal) ==

== ENCOUNTER 2023-01-09 04:57 | Emergency (ER) | payer MEDICAID ==
[2023-01-09] MEDS ORDERED: Sodium Chloride 0.9% 10 ML Syringe FLUSH PRN (05:02)
[2023-01-09] MEDS ORDERED: Morphine 2 MG/ML SYRINGE IVPUSH ONE (05:13)
[2023-01-09 05:23] LABS: BASOPHILS PERCENT AUTO 0.3 % (0.0-1.0); EOSINOPHILS PERCENT AUTO 2.9 % (1.0-3.0); HEMOGLOBIN 14.7 g/dL (12.0-16.0); MEAN CORPUSCULAR HEMOGLOBIN 30.8 pg (27.0-34.0); MEAN CORPUSCULAR VOLUME 88.1 fL (80-100); MONOCYTES PERCENT AUTO 9.8 % (2-8); PLATELET COUNT,PLT 170 10^3/uL (150-450); RED BLOOD CELL COUNT 4.77 10^6/uL (4.2-5.4); WHITE BLOOD CELL COUNT,WBC 6.6 10^3/uL (5.0-10.0)
[2023-01-09 05:36] VITALS: BP 134/93; PULSE 80
[2023-01-09] MEDS ORDERED: cefTRIAXone 1 GM Vial IVPUSH ONE (05:37)
[2023-01-09 05:48] LABS: A/G RATIO 1.3; ALBUMIN 3.9 g/dL (3.4-5.0); ANION GAP 10.3 mEq/L (7-13); BILIRUBIN TOTAL 0.4 mg/dL (0.2-1.0); BUN/CREATININE RATIO 25.3 (No establ ref range); CALCIUM 8.7 mg/dL (8.5-10.1); CREATININE 0.79 mg/dL (0.55-1.02); EST CRCL DRUG DOSING (CG) 82.63 mL/min; POTASSIUM,K 4.3 mmol/L (3.5-5.1); PROTEIN TOTAL,TP 6.9 g/dL (6.4-8.2)
== END 2023-01-09 06:27 | disposition home or self-care (01) ==
LOC: DL.ED 04:57
DX: K02.9 Dental caries, unspecified (principal); K04.7 Periapical abscess without sinus; Z91.018 Allergy to other foods; Z91.040 Latex allergy status; Z91.09 Other allergy status, other than to drugs and biological substances; Z88.8 Allergy status to other drugs, medicaments and biological substances; Z91.030 Bee allergy status; Z86.16 Personal history of COVID-19
CPT/HCPCS: 36415; 70486; 80053; 85025; 96374; 96375; 99282; 99283-25; J0696; J2270; J3490

== ENCOUNTER 2023-01-21 18:57 | Emergency (ER) | payer MEDICAID ==
[2023-01-21] MEDS ORDERED: Acetaminophen/oxyCODONE 325-5 MG Tab PO ONE (19:43)
[2023-01-21] MEDS ORDERED: Ketorolac 30 MG/ML SDV IM ONE (19:43)
[2023-01-21] MEDS ORDERED: Phenazopyridine 95 MG Tab PO ONE (19:44)
[2023-01-21 19:53] LABS: APPEARANCE,URINE SLIGHTLY CLOUDY (CLEAR); BILIRUBIN,URINE NEGATIVE (NEGATIVE); GLUCOSE,URINE 100 (NEGATIVE); KETONES,URINE TRACE (NEGATIVE); LEUKOCYTE ESTERASE,URINE SMALL (NEGATIVE); NITRITE,URINE POSITIVE (NEGATIVE); OCCULT BLOOD,URINE TRACE-LYSED (NEGATIVE); PH,URINE 5.5 (5.0-9.0); PROTEIN,URINE 100 (NEGATIVE)
[2023-01-21 19:54] LABS: COLOR,URINE ORANGE (YELLOW)
[2023-01-21 20:04] LABS: BACTERIA,URINE MODERATE /HPF (0-FEW/HPF); EPITHELIAL CELLS,URINE FEW /HPF (NOT SEEN)
[2023-01-21 20:05] LABS: MUCUS,URINE MODERATE /LPF (NOT SEEN); RBC,URINE SEMI-PACKED /HPF (0-5)
[2023-01-21] MEDS ORDERED: Ciprofloxacin 500 MG Tab PO ONE (20:09)
[2023-01-21 20:37] VITALS: BP 128/77; PULSE 77
== END 2023-01-21 20:38 | disposition home or self-care (01) ==
LOC: DL.ED 18:57
DX: N30.00 Acute cystitis without hematuria (principal); R80.9 Proteinuria, unspecified; F17.210 Nicotine dependence, cigarettes, uncomplicated; Z86.16 Personal history of COVID-19; Z91.040 Latex allergy status; Z91.018 Allergy to other foods; Z91.030 Bee allergy status; Z91.048 Other nonmedicinal substance allergy status; Z88.8 Allergy status to other drugs, medicaments and biological substances
CPT/HCPCS: 81001; 81025; 96372; 99283; 99284; A9270; J1885

== ENCOUNTER 2023-03-18 13:24 | Emergency (ER) | payer MEDICAID ==
[2023-03-18] MEDS ORDERED: diphenhydrAMINE 50 MG/ML SDV IVPUSH ONE (13:30)
[2023-03-18 14:00] VITALS: BP 110/71; PULSE 60
[2023-03-18] MEDS ORDERED: EPINEPHrine 1 MG/ML SDV IM ONE (14:05)
[2023-03-18] MEDS ORDERED: Dexamethasone 4 MG/ML SDV IM ONE (14:06)
== END 2023-03-18 14:37 | disposition home or self-care (01) ==
LOC: DL.ED 13:24
DX: T63.451A Toxic effect of venom of hornets, accidental (unintentional), initial encounter (principal); Z86.16 Personal history of COVID-19; Z91.040 Latex allergy status; Z88.8 Allergy status to other drugs, medicaments and biological substances; Z91.02 Food additives allergy status; Z91.048 Other nonmedicinal substance allergy status; Z91.09 Other allergy status, other than to drugs and biological substances
CPT/HCPCS: 96372; 96374; 99282; 99283-25; J0171; J1100; J1200

== ENCOUNTER 2023-03-29 17:14 | Emergency (ER) | payer MEDICAID ==
[2023-03-29 17:31] VITALS: BP 118/82; PULSE 66
== END 2023-03-29 17:51 | disposition home or self-care (01) ==
LOC: DL.ED 17:14
DX: J06.9 Acute upper respiratory infection, unspecified (principal); Z86.16 Personal history of COVID-19; Z91.030 Bee allergy status; Z91.040 Latex allergy status; Z91.018 Allergy to other foods; Z88.8 Allergy status to other drugs, medicaments and biological substances; Z91.048 Other nonmedicinal substance allergy status
CPT/HCPCS: 99282; 99283

== ENCOUNTER 2023-05-25 19:49 | Emergency (ER) | payer MEDICAID | END 2023-05-25 20:35 | disposition left against medical advice (07) | LOC: DL.ED 19:49 | DX: Z53.21 Procedure and treatment not carried out due to patient leaving prior to being seen by health care provider (principal) ==

== ENCOUNTER 2023-05-27 19:39 | Emergency (ER) | payer MEDICAID ==
[2023-05-28 00:03] VITALS: BP 131/84; PULSE 81
== END 2023-05-27 22:00 | disposition left against medical advice (07) ==
LOC: DL.ED 19:39
DX: Z53.21 Procedure and treatment not carried out due to patient leaving prior to being seen by health care provider (principal)

== ENCOUNTER 2023-07-02 06:25 | Day surgery (SDC) | payer MEDICAID ==
[~2023-07-02 06:25] MED LIST: Dextrose 5%-0.45% NaCl 1,000 ML IV SCH
[2023-07-02] MEDS ORDERED: Dextrose 5%-0.45% NaCl 1,000 ML IV SCH (07:00)
[2023-07-02 09:24] VITALS: BP 102/58; PULSE 60
== END 2023-07-02 09:12 | disposition home or self-care (01) ==
LOC: DL.ENDO 06:25
PROVIDERS: ATTEND Internal Medicine Gastroenterology
DX: K22.2 Esophageal obstruction (principal); K29.50 Unspecified chronic gastritis without bleeding; B96.81 Helicobacter pylori [H. pylori] as the cause of diseases classified elsewhere; J45.998 Other asthma; F17.210 Nicotine dependence, cigarettes, uncomplicated; F17.290 Nicotine dependence, other tobacco product, uncomplicated; Z91.030 Bee allergy status; Z91.040 Latex allergy status; Z91.018 Allergy to other foods
CPT/HCPCS: 81025; 87077; J7042

== ENCOUNTER 2023-07-11 13:44 | Emergency (ER) | payer MEDICAID | END 2023-07-11 14:34 | disposition home or self-care (01) | LOC: DL.ED 13:44 | DX: R11.2 Nausea with vomiting, unspecified (principal); J45.909 Unspecified asthma, uncomplicated; Z91.018 Allergy to other foods; Z91.030 Bee allergy status; Z91.040 Latex allergy status; Z91.048 Other nonmedicinal substance allergy status; Z79.899 Other long term (current) drug therapy; Z86.16 Personal history of COVID-19 | CPT/HCPCS: 99283 ==

== ENCOUNTER 2023-10-23 08:12 | Emergency (ER) | payer MEDICAID ==
[2023-10-23 08:38] LABS: APPEARANCE,URINE CLOUDY (CLEAR); BILIRUBIN,URINE NEGATIVE (NEGATIVE); COLOR,URINE DARK YELLOW (YELLOW); GLUCOSE,URINE NEGATIVE (NEGATIVE); KETONES,URINE NEGATIVE (NEGATIVE); LEUKOCYTE ESTERASE,URINE NEGATIVE (NEGATIVE); NITRITE,URINE POSITIVE (NEGATIVE); OCCULT BLOOD,URINE TRACE-INTACT (NEGATIVE); PROTEIN,URINE TRACE (NEGATIVE); UROBILINOGEN,URINE 0.2 mg/dL (0.2-1.0)
[2023-10-23 08:41] LABS: BASOPHILS PERCENT AUTO 0.2 % (0.0-1.0); EOSINOPHILS PERCENT AUTO 1.2 % (1.0-3.0); HEMATOCRIT 39.2 % (37.0-47.0); LYMPHOCYTES PERCENT AUTO 13.3 % (20.5-50.1); MEAN CORPUSCULAR HEMOGLOBIN 29.5 pg (27.0-34.0); MEAN CORPUSCULAR HGB CONC 35.7 g/dL (33.0-35.0); MEAN CORPUSCULAR VOLUME 82.7 fL (80-100); MONOCYTES PERCENT AUTO 8.4 % (2-8); NEUTROPHILS PERCENT AUTO 76.9 % (42.2-75.2); PLATELET COUNT,PLT 194 10^3/uL (150-450); RED BLOOD CELL COUNT 4.74 10^6/uL (4.2-5.4); WHITE BLOOD CELL COUNT,WBC 12.4 10^3/uL (5.0-10.0)
[2023-10-23 08:49] LABS: BACTERIA,URINE MANY /HPF (0-FEW/HPF); EPITHELIAL CELLS,URINE FEW /HPF (NOT SEEN); MUCUS,URINE RARE /LPF (NOT SEEN); RBC,URINE 0-5 /HPF (0-5); WBC,URINE 0-5 /HPF (0-5/HPF)
[2023-10-23 08:55] LABS: ALBUMIN 3.6 g/dL (3.4-5.0); ANION GAP 11.7 mEq/L (7-13); BILIRUBIN TOTAL 0.8 mg/dL (0.2-1.0); BUN/CREATININE RATIO 8.3 (No establ ref range); CALCIUM 8.3 mg/dL (8.5-10.1); CREATININE 0.72 mg/dL (0.55-1.02); EST CRCL DRUG DOSING (CG) 96.18 mL/min; POTASSIUM,K 3.7 mmol/L (3.5-5.1); PROTEIN TOTAL,TP 7.1 g/dL (6.4-8.2)
[2023-10-23] MEDS: cefTRIAXone 1 GM Vial IVPUSH ONE (11:16)
[2023-10-23] MEDS: Doxycycline Monohydrate 100 MG Cap PO ONE (11:16)
[2023-10-23] MEDS: metroNIDAZOLE 250 MG Tab PO ONE (11:16)
[2023-10-23 11:44] VITALS: BP 112/58; PULSE 76
[2023-10-24 13:46] LABS: C.TRACHOMATIS BY TMA Negative (Negative); N.GONORRHOEAE BY TMA Negative (Negative); SOURCE URINE
== END 2023-10-23 11:36 | disposition home or self-care (01) ==
LOC: DL.ED 08:12
DX: N73.9 Female pelvic inflammatory disease, unspecified (principal); J45.909 Unspecified asthma, uncomplicated; F17.210 Nicotine dependence, cigarettes, uncomplicated; Z91.040 Latex allergy status; Z91.018 Allergy to other foods; Z91.030 Bee allergy status; Z88.8 Allergy status to other drugs, medicaments and biological substances; Z79.899 Other long term (current) drug therapy; Z79.51 Long term (current) use of inhaled steroids; Z86.16 Personal history of COVID-19; Z86.19 Personal history of other infectious and parasitic diseases
CPT/HCPCS: 36415; 80053; 81001; 81025; 83690; 85025; 87086; 87210; 87491; 87591; 96374; 99284; A9270; J0696; 87088; 87186; 99283

== ENCOUNTER 2024-08-24 06:37 | Emergency (ER) | payer MEDICAID ==
[2024-08-24] MEDS ORDERED: Sodium Chloride 0.9% 10 ML Syringe FLUSH PRN (07:14)
[2024-08-24] MEDS: fentaNYL 100 MCG/2 ML SDV IVPUSH ONE (07:27)
[2024-08-24] MEDS: Ketorolac 30 MG/ML SDV IVPUSH ONE (07:32)
[2024-08-24 07:34] LABS: BASOPHILS PERCENT AUTO 0.1 % (0.0-1.0); EOSINOPHILS PERCENT AUTO 0.6 % (1.0-3.0); HEMOGLOBIN 14.3 g/dL (12.0-16.0); LYMPHOCYTES PERCENT AUTO 21.4 % (20.5-50.1); MEAN CORPUSCULAR HEMOGLOBIN 29.1 pg (27.0-34.0); MEAN CORPUSCULAR HGB CONC 34.9 g/dL (33.0-35.0); MEAN CORPUSCULAR VOLUME 83.3 fL (80-100); MONOCYTES PERCENT AUTO 7.2 % (2-8); NEUTROPHILS PERCENT AUTO 70.7 % (42.2-75.2); PLATELET COUNT,PLT 176 10^3/uL (150-450); RED BLOOD CELL COUNT 4.92 10^6/uL (4.2-5.4); WHITE BLOOD CELL COUNT,WBC 9.5 10^3/uL (5.0-10.0)
[2024-08-24 07:41] LABS: APPEARANCE,URINE CLOUDY (CLEAR); BILIRUBIN,URINE NEGATIVE (NEGATIVE); COLOR,URINE YELLOW (YELLOW); GLUCOSE,URINE NEGATIVE (NEGATIVE); KETONES,URINE NEGATIVE (NEGATIVE); LEUKOCYTE ESTERASE,URINE NEGATIVE (NEGATIVE); NITRITE,URINE NEGATIVE (NEGATIVE); OCCULT BLOOD,URINE SMALL (NEGATIVE); PROTEIN,URINE 30 (NEGATIVE); UROBILINOGEN,URINE 0.2 mg/dL (0.2-1.0)
[2024-08-24 07:45] LABS: AMPHETAMINES,URINE NEGATIVE (NEGATIVE); BARBITURATES,URINE NEGATIVE (NEGATIVE); BENZODIAZEPINE,URINE NEGATIVE (NEGATIVE); MDMA (ECSTASY), URINE NEGATIVE (NEGATIVE); METHADONE,URINE NEGATIVE (NEGATIVE); METHAMPHETAMINES,URINE NEGATIVE (NEGATIVE); OPIATES,URINE NEGATIVE (NEGATIVE); OXYCODONE,URINE NEGATIVE (NEGATIVE); PHENCYCLIDINE,URINE NEGATIVE (NEGATIVE); TCA,URINE NEGATIVE (NEGATIVE)
[2024-08-24 07:51] LABS: RBC,URINE 0-5 /HPF (0-5)
[2024-08-24 07:52] LABS: BACTERIA,URINE MANY /HPF (0-FEW/HPF); EPITHELIAL CELLS,URINE MANY /HPF (NOT SEEN)
[2024-08-24 07:53] LABS: A/G RATIO 1.1; ALANINE AMINOTRANSFERASE,ALT 14 U/L (14-59); ALBUMIN 3.9 g/dL (3.4-5.0); ALKALINE PHOSPHATASE 57 U/L (46-116); ANION GAP 13.8 mEq/L (7-13); ASPARTATE AMNIOTRANSFERASE,AST 9 U/L (15-37); BILIRUBIN TOTAL 1.2 mg/dL (0.2-1.0); BLOOD UREA NITROGEN,BUN 7 mg/dL (7-18); BUN/CREATININE RATIO 9.1 (No establ ref range); CARBON DIOXIDE,CO2 28 mmol/L (21-32); CHLORIDE,CL 102 mmol/L (98-107); CREATININE 0.77 mg/dL (0.55-1.02); EST CRCL DRUG DOSING (CG) 88.06 mL/min; GLUCOSE RANDOM 96 mg/dL (70-99); MAGNESIUM 1.7 mg/dL (1.8-2.4); POTASSIUM,K 3.8 mmol/L (3.5-5.1); PROTEIN TOTAL,TP 7.4 g/dL (6.4-8.2); SODIUM,NA 140 mmol/L (136-145)
[2024-08-24 07:54] LABS: C-REACTIVE PROTEIN < 0.50 ng/dL (<=0.50); ESTIMATED GFR 103 mL/min (>=60)
[2024-08-24] MEDS: Iopamidol 612 MG/ML 100 ML Bottle IVPUSH ONE (08:02)
[2024-08-24] MEDS: Magnesium Sulfate/D5W 1 GM/100 ML BAG IV ONE (08:06)
[2024-08-24 12:04] VITALS: BP 104/74; PULSE 60
== END 2024-08-24 12:00 | disposition home or self-care (01) ==
LOC: DL.ED 06:37
DX: R51.9 Headache, unspecified (principal); M54.9 Dorsalgia, unspecified; E83.42 Hypomagnesemia; K76.9 Liver disease, unspecified; J45.909 Unspecified asthma, uncomplicated; F17.210 Nicotine dependence, cigarettes, uncomplicated; Z86.16 Personal history of COVID-19; Z88.8 Allergy status to other drugs, medicaments and biological substances; Z91.030 Bee allergy status; Z91.018 Allergy to other foods; Z91.048 Other nonmedicinal substance allergy status; Z91.040 Latex allergy status; Z79.51 Long term (current) use of inhaled steroids; Z79.899 Other long term (current) drug therapy
CPT/HCPCS: 36415; 74178; 76856; 80053; 80305-QW; 81001; 83735; 84703; 85025; 86140; 87086; 87428-QW; 96365; 96375; 99284; 99284-25; J1885; J3010; J3475; Q9967

== ENCOUNTER 2024-09-27 08:48 | Emergency (ER) | payer MEDICAID ==
[2024-09-27 09:00] VITALS: BP 122/69; PULSE 67
[2024-09-27] MEDS: Ketorolac 30 MG/ML SDV IM ONE (09:20)
[2024-09-27] MEDS: Morphine 2 MG/ML SYRINGE IM ONE (09:20)
[2024-09-27] MEDS: Ibuprofen 800 MG Tab PO ONE (09:32)
[2024-09-27] MEDS: Take Home: Lidocaine 2% Viscous Solution 15 ML UD, 2 Cup Pack PO ONE (09:32)
[2024-09-27] MEDS: Take Home: traMADol 50 MG, 4 Tab Pack PO ONE (09:33)
[2024-09-27] MEDS: Take Home: Ondansetron 4 MG Tab.DIS, 5 Tab Pack PO ONE (09:33)
== END 2024-09-27 09:51 | disposition home or self-care (01) ==
LOC: DL.ED 08:48
DX: M27.3 Alveolitis of jaws (principal); Z88.8 Allergy status to other drugs, medicaments and biological substances; Z91.030 Bee allergy status; Z79.899 Other long term (current) drug therapy; J45.909 Unspecified asthma, uncomplicated; Z86.16 Personal history of COVID-19
CPT/HCPCS: 96372; 99282; A9270; J1885; J2270; Q0162

== ENCOUNTER 2024-11-21 22:17 | Emergency (ER) | payer MEDICAID ==
[2024-11-21] MEDS: Sodium Chloride 0.9% 1,000 ML IV ONE (23:24)
[2024-11-21] MEDS: Dexamethasone 4 MG/ML SDV IVPUSH ONE (23:25)
[2024-11-21] MEDS: Ketorolac 30 MG/ML SDV IVPUSH ONE (23:27)
[2024-11-21 23:28] LABS: BASOPHILS PERCENT AUTO 0.4 % (0.0-1.0); EOSINOPHILS PERCENT AUTO 5.2 % (1.0-3.0); HEMATOCRIT 37.5 % (37.0-47.0); HEMOGLOBIN 13.1 g/dL (12.0-16.0); LYMPHOCYTES PERCENT AUTO 44.6 % (20.5-50.1); MEAN CORPUSCULAR HEMOGLOBIN 29.2 pg (27.0-34.0); MEAN CORPUSCULAR HGB CONC 34.9 g/dL (33.0-35.0); MEAN CORPUSCULAR VOLUME 83.7 fL (80-100); MONOCYTES PERCENT AUTO 10.2 % (2-8); NEUTROPHILS PERCENT AUTO 39.6 % (42.2-75.2); PLATELET COUNT,PLT 154 10^3/uL (150-450); RED BLOOD CELL COUNT 4.48 10^6/uL (4.2-5.4); WHITE BLOOD CELL COUNT,WBC 4.6 10^3/uL (5.0-10.0)
[2024-11-21] MEDS: Metoclopramide 10 MG/2 ML SDV IVPUSH ONE (23:28)
[2024-11-21] MEDS: diphenhydrAMINE 50 MG/ML SDV IVPUSH ONE (23:28)
[2024-11-21 23:50] LABS: A/G RATIO 1.1; ALANINE AMINOTRANSFERASE,ALT 21 U/L (14-59); ALBUMIN 3.5 g/dL (3.4-5.0); ALKALINE PHOSPHATASE 78 U/L (46-116); ANION GAP 9.5 mEq/L (7-13); ASPARTATE AMNIOTRANSFERASE,AST 16 U/L (15-37); BILIRUBIN TOTAL 0.5 mg/dL (0.2-1.0); BLOOD UREA NITROGEN,BUN 10 mg/dL (7-18); BUN/CREATININE RATIO 15.2 (No establ ref range); CALCIUM 8.9 mg/dL (8.5-10.1); CARBON DIOXIDE,CO2 28 mmol/L (21-32); CHLORIDE,CL 105 mmol/L (98-107); CREATININE 0.66 mg/dL (0.55-1.02); GLUCOSE RANDOM 91 mg/dL (70-99); POTASSIUM,K 3.5 mmol/L (3.5-5.1); PROTEIN TOTAL,TP 6.7 g/dL (6.4-8.2); SODIUM,NA 139 mmol/L (136-145)
[2024-11-21 23:52] LABS: ESTIMATED GFR 117 mL/min (>=60)
[2024-11-21 23:57] LABS: HCG QUALITATIVE,SERUM NEGATIVE (NEGATIVE)
[2024-11-22 00:44] VITALS: BP 94/47; PULSE 60
== END 2024-11-22 00:57 | disposition home or self-care (01) ==
LOC: DL.ED 22:17
DX: G43.909 Migraine, unspecified, not intractable, without status migrainosus (principal); J45.909 Unspecified asthma, uncomplicated; Z88.8 Allergy status to other drugs, medicaments and biological substances; Z91.040 Latex allergy status; Z91.018 Allergy to other foods; Z91.09 Other allergy status, other than to drugs and biological substances; Z91.030 Bee allergy status; Z91.048 Other nonmedicinal substance allergy status; Z79.899 Other long term (current) drug therapy; Z86.16 Personal history of COVID-19; Z79.51 Long term (current) use of inhaled steroids
CPT/HCPCS: 36415; 80053; 84703; 85025; 96374; 96375; 99282; 99284; J1100; J1200; J1885; J2765; J7030

== ENCOUNTER 2024-12-09 18:03 | Emergency (ER) | payer MEDICAID ==
[2024-12-09 18:41] LABS: BASOPHILS PERCENT AUTO 0.3 % (0.0-1.0); EOSINOPHILS PERCENT AUTO 3.8 % (1.0-3.0); HEMATOCRIT 37.9 % (37.0-47.0); HEMOGLOBIN 13.4 g/dL (12.0-16.0); LYMPHOCYTES PERCENT AUTO 40.9 % (20.5-50.1); MEAN CORPUSCULAR HEMOGLOBIN 29.8 pg (27.0-34.0); MEAN CORPUSCULAR HGB CONC 35.4 g/dL (33.0-35.0); MEAN CORPUSCULAR VOLUME 84.4 fL (80-100); MONOCYTES PERCENT AUTO 7.9 % (2-8); NEUTROPHILS PERCENT AUTO 47.1 % (42.2-75.2); PLATELET COUNT,PLT 172 10^3/uL (150-450); RED BLOOD CELL COUNT 4.49 10^6/uL (4.2-5.4); WHITE BLOOD CELL COUNT,WBC 5.7 10^3/uL (5.0-10.0)
[2024-12-09 18:48] LABS: AMPHETAMINES,URINE NEGATIVE (NEGATIVE); BARBITURATES,URINE NEGATIVE (NEGATIVE); BENZODIAZEPINE,URINE NEGATIVE (NEGATIVE); MDMA (ECSTASY), URINE NEGATIVE (NEGATIVE); METHADONE,URINE NEGATIVE (NEGATIVE); METHAMPHETAMINES,URINE NEGATIVE (NEGATIVE); OPIATES,URINE NEGATIVE (NEGATIVE); OXYCODONE,URINE NEGATIVE (NEGATIVE); PHENCYCLIDINE,URINE NEGATIVE (NEGATIVE); TCA,URINE NEGATIVE (NEGATIVE)
[2024-12-09 19:01] LABS: A/G RATIO 1.1; ALANINE AMINOTRANSFERASE,ALT 14 U/L (14-59); ALBUMIN 3.5 g/dL (3.4-5.0); ALKALINE PHOSPHATASE 70 U/L (46-116); ANION GAP 9.9 mEq/L (7-13); ASPARTATE AMNIOTRANSFERASE,AST 10 U/L (15-37); BILIRUBIN TOTAL 0.4 mg/dL (0.2-1.0); BLOOD UREA NITROGEN,BUN 9 mg/dL (7-18); BUN/CREATININE RATIO 12.5 (No establ ref range); CALCIUM 9.1 mg/dL (8.5-10.1); CARBON DIOXIDE,CO2 30 mmol/L (21-32); CHLORIDE,CL 105 mmol/L (98-107); CREATININE 0.72 mg/dL (0.55-1.02); EST CRCL DRUG DOSING (CG) 94.17 mL/min; GLUCOSE RANDOM 104 mg/dL (70-99); MAGNESIUM 1.8 mg/dL (1.8-2.4); POTASSIUM,K 3.9 mmol/L (3.5-5.1); PROTEIN TOTAL,TP 6.8 g/dL (6.4-8.2); SODIUM,NA 141 mmol/L (136-145)
[2024-12-09 19:02] LABS: ESTIMATED GFR 112 mL/min (>=60); ETHANOL BLOOD MEDICAL < 3 mg/dL (0)
[2024-12-09] MEDS: Metoclopramide 10 MG/2 ML SDV IVPUSH ONE (19:03)
[2024-12-09 19:04] LABS: HCG QUALITATIVE,SERUM NEGATIVE (NEGATIVE)
[2024-12-09] MEDS: Thiamine 100 MG in Sodium Chloride 0.9% 1,000 ML IV ONE (19:04)
[2024-12-09] MEDS: Sodium Chloride 0.9% 1,000 ML IV SCH (19:04)
[2024-12-09] MEDS: Ketorolac 30 MG/ML SDV IVPUSH ONE (19:04)
[2024-12-09 20:04] VITALS: BP 91/54; PULSE 60
== END 2024-12-09 20:43 | disposition home or self-care (01) ==
LOC: DL.ED 18:03
DX: G43.909 Migraine, unspecified, not intractable, without status migrainosus (principal); F17.200 Nicotine dependence, unspecified, uncomplicated; Z91.048 Other nonmedicinal substance allergy status; Z91.030 Bee allergy status; Z91.09 Other allergy status, other than to drugs and biological substances; Z88.8 Allergy status to other drugs, medicaments and biological substances; Z79.899 Other long term (current) drug therapy
CPT/HCPCS: 36415; 80053; 80305-QW; 80307; 83735; 84703; 85025; 96365; 96375; 99284; 99284-25; J1885; J2765; J3411; J7030

== ENCOUNTER 2024-12-27 20:19 | Emergency (ER) | payer MEDICAID ==
[2024-12-27 21:02] VITALS: BP 131/72; PULSE 73
[2024-12-27] MEDS: Take Home: Lidocaine 2% Viscous Solution 15 ML UD, 2 Cup Pack PO ONE (21:05)
== END 2024-12-27 21:11 | disposition home or self-care (01) ==
LOC: DL.ED 20:19
DX: K12.0 Recurrent oral aphthae (principal); J45.909 Unspecified asthma, uncomplicated; K21.9 Gastro-esophageal reflux disease without esophagitis; Z91.018 Allergy to other foods; Z91.040 Latex allergy status; Z91.030 Bee allergy status; Z91.09 Other allergy status, other than to drugs and biological substances; Z79.51 Long term (current) use of inhaled steroids; Z79.899 Other long term (current) drug therapy
CPT/HCPCS: 99282; A9270

== ENCOUNTER 2025-01-28 21:39 | Emergency (ER) | payer MEDICAID ==
[2025-01-28] MEDS: Citric Acid/Simethicone/Sodium Bicarbonate Granules 4 GM Packet PO ONE (22:44)
[2025-01-28 23:06] VITALS: PULSE 61
[2025-01-29 00:48] VITALS: BP 130/90
== END 2025-01-29 00:42 | disposition home or self-care (01) ==
LOC: DL.ED 21:39
DX: T18.128A Food in esophagus causing other injury, initial encounter (principal); M19.90 Unspecified osteoarthritis, unspecified site; J45.909 Unspecified asthma, uncomplicated; Z79.899 Other long term (current) drug therapy; Z79.51 Long term (current) use of inhaled steroids; Z88.8 Allergy status to other drugs, medicaments and biological substances; Z91.040 Latex allergy status; Z91.030 Bee allergy status; Z91.09 Other allergy status, other than to drugs and biological substances
CPT/HCPCS: 36415; 70360; 70490; 84703; 96361; 96374; 96375; 99283; 99284; A9270; J1308; J1610; J7030

== ENCOUNTER 2025-01-30 14:01 | Emergency (ER) | payer MEDICAID ==
[2025-01-30 14:31] VITALS: BP 116/81; PULSE 67
== END 2025-01-30 14:55 | disposition home or self-care (01) ==
LOC: DL.ED 14:01
DX: G44.209 Tension-type headache, unspecified, not intractable (principal); K21.9 Gastro-esophageal reflux disease without esophagitis; J45.909 Unspecified asthma, uncomplicated; F17.210 Nicotine dependence, cigarettes, uncomplicated; Z91.040 Latex allergy status; Z91.048 Other nonmedicinal substance allergy status; Z88.8 Allergy status to other drugs, medicaments and biological substances; Z91.09 Other allergy status, other than to drugs and biological substances; Z91.030 Bee allergy status; Z91.018 Allergy to other foods; Z79.51 Long term (current) use of inhaled steroids
CPT/HCPCS: 99283; J8540

== ENCOUNTER 2025-04-26 17:11 | Emergency (ER) | payer MEDICAID ==
[2025-04-26] MEDS: Acetaminophen/HYDROcodone 325-5 MG Tab PO ONE (17:29)
[2025-04-26] MEDS: Amoxicillin/Clavulanate K 875-125 MG Tab PO ONE (17:29)
[2025-04-26 17:40] VITALS: BP 138/68; PULSE 95
== END 2025-04-26 18:09 | disposition home or self-care (01) ==
LOC: DL.ED 17:11
DX: S63.280A Dislocation of proximal interphalangeal joint of right index finger, initial encounter (principal); S63.282A Dislocation of proximal interphalangeal joint of right middle finger, initial encounter; J45.909 Unspecified asthma, uncomplicated; Z79.899 Other long term (current) drug therapy; Z91.040 Latex allergy status; Z88.8 Allergy status to other drugs, medicaments and biological substances; Z91.030 Bee allergy status; W54.0XXA Bitten by dog, initial encounter
CPT/HCPCS: 73130; 99283; A9270

== ENCOUNTER 2025-04-30 13:30 | Emergency (ER) | payer MEDICAID ==
[2025-04-30 14:04] LABS: APPEARANCE,URINE CLEAR (CLEAR); GLUCOSE,URINE NEGATIVE (NEGATIVE); OCCULT BLOOD,URINE NEGATIVE (NEGATIVE)
[2025-04-30 14:14] VITALS: BP 135/97; PULSE 68
[2025-04-30 14:14] LABS: EPITHELIAL CELLS,URINE FEW /HPF (NOT SEEN)
[2025-05-05 12:48] LABS: C.TRACHOMATIS BY TMA Negative (Negative); M GENITALIUM Negative (Negative); M GENITALIUM SOURCE Urine; N.GONORRHOEAE BY TMA Negative (Negative)
== END 2025-04-30 14:36 | disposition left against medical advice (07) ==
LOC: DL.ED 13:30
DX: Z53.21 Procedure and treatment not carried out due to patient leaving prior to being seen by health care provider (principal)
CPT/HCPCS: 81001; 81025; 87491; 87563; 87591